=== PATIENT | female | born 1960 | race Caucasian/White ===

== ENCOUNTER → 2016-04-17 | Outpatient (CLI) | payer BC ==
[~2016-04-17] MED LIST: CYAN10002 INJ
== END | disposition home or self-care (01) ==
LOC: C.PAPS 11:55
PROVIDERS: ATTEND Obstetrics & Gynecology
DX: Z01.419 Encounter for gynecological examination (general) (routine) without abnormal findings (principal)

== ENCOUNTER → 2016-10-25 | Outpatient (CLI) | payer BC, OTHER | END | disposition home or self-care (01) | LOC: C.RDSM 13:53 | PROVIDERS: ATTEND Orthopaedic Surgery Sports Medicine | DX: R52 Pain, unspecified (principal) ==

== ENCOUNTER → 2016-10-30 | Outpatient (CLI) | payer BC ==
--- NOTE | 2016-10-30 08:03 | DIAGNOSTIC IMAGING REPORT ---
LEFT KNEE MRI HISTORY: Left knee pain. COMPARISON STUDY: Left knee 10/25/2016. TECHNIQUE: Multiplanar multisequence MRI of the left knee was performed according to standard department protocol without the use of contrast. FINDINGS: Menisci: Small oblique tear seen within the junction of the body and posterior horn of the medial meniscus. There is also a complex tear seen within the body and posterior horn of the lateral meniscus. Ligaments: The ACL, PCL, MCL, and LCL fibers are intact. Tiny cystlike structure deep to the MCL with mild surrounding edema at the MCL. This favors a mild MCL bursitis. Extensor mechanism: The quadriceps tendon and patellar ligament are intact. Articular cartilage and bone: No fracture or dislocation within the knee. Small focal areas of subchondral edema within the medial femoral condyle. Greater than 50% cartilage thinning within the central weightbearing portion of the medial femoral condyle. Mild cartilage thinning within the lateral femoral condyle and patella. Joint effusion: None. Soft tissues: Small popliteal cyst. IMPRESSION: 1. Medial and lateral meniscal tears as described above. 2. Tiny cystlike structure deep to the intact MCL. This is consistent with a mild MCL bursitis. 3. Mild to moderate tricompartmental osteoarthritis most notable within the medial compartment. 4. Small popliteal cyst. Electronically signed by: Vitor Wooten M.D. 10/30/2016 8:01 AM Dictated Date/Time: 10/30/2016 7:49 AM
== END | disposition home or self-care (01) ==
PROVIDERS: ATTEND Orthopaedic Surgery Sports Medicine
DX: S83.209A Unspecified tear of unspecified meniscus, current injury, unspecified knee, initial encounter (principal); X58.XXXA Exposure to other specified factors, initial encounter

== ENCOUNTER → 2017-02-19 | Outpatient (CLI) | payer BC ==
--- NOTE | 2017-02-19 14:45 | MAMMOGRAPHY REPORT ---
BILATERAL DIGITAL SCREENING MAMMOGRAM TOMOSYNTHESIS WITH CAD: 02/19/2017 CLINICAL HISTORY: Routine screening. Patient has no complaints. TECHNIQUE: Breast tomosynthesis in addition to standard 2D mammography was performed. Current study was also evaluated with a Computer Aided Detection (CAD) system. COMPARISON: Comparison is made to exams dated: 02/14/2016 mammogram, 02/10/2015 mammogram, 1 mammogram, 03/21/2010 ultrasound, 03/21/2010 mammogram, and 03/04/2010 mammogram - [facility]. BREAST COMPOSITION: The tissue of both breasts is extremely dense, which lowers the sensitivity of m ammography. FINDINGS: There are grouped calcifications within the left superior posterior breast on the MLO view only, thought to project laterally based on the tomosynthesis localizer bar, for which spot magnifica tion views and left XCCL view are recommended for further evaluation. The remainder of both breasts are stable compared to prior exams, without suspicious masses, calcific ations, or areas of architectural distortion noted. Other scattered bilateral benign-appearing calci fications are not significantly changed. Circumscribed benign-appearing mass with associated layerin g calcifications in the left 12:00 breast is stable to decreased compared to prior exams and is benig n and compatible with a cyst. IMPRESSION: ACR BI-RADS CATEGORY 0: INCOMPLETE EVALUATION: NEED ADDITIONAL IMAGING EVALUATION Grouped calcifications in the left superior breast, for which additional imaging evaluation is recomm ended. The patient will be called to schedule an appointment. Approximately 10% of breast cancers are not detected with mammography. A negative mammographic report should not delay biopsy if a clinically suggestive mass is present. Sanna Ghosh M.D. ah/:02/19/2017 07:59:06 Supervisor [employer]: Terri KERN,R, M, [facility] letter sent: Addl Imaging 0 BI-RADS Code: ACR BI-RADS Category 0: Incomplete Evaluation: Need Additional Imaging Evaluation
== END | disposition home or self-care (01) ==
LOC: C.MAMM 07:10
PROVIDERS: ATTEND Obstetrics & Gynecology
DX: Z12.31 Encounter for screening mammogram for malignant neoplasm of breast (principal); R92.0 Mammographic microcalcification found on diagnostic imaging of breast

== ENCOUNTER → 2017-05-03 | Outpatient (CLI) | payer OTHER | END | disposition home or self-care (01) | LOC: C.PAPS 14:16 | PROVIDERS: ATTEND Physician Assistant | DX: Z01.419 Encounter for gynecological examination (general) (routine) without abnormal findings (principal); Z78.0 Asymptomatic menopausal state ==

== ENCOUNTER → 2017-07-25 | Outpatient (CLI) | payer OTHER ==
[~2017-07-25] MED LIST changes: -CYAN10002 INJ; +No Home Meds
[2017-07-25 14:30] VITALS: BP 116/69; PULSE 76; TEMP 36.7; O2SAT 98
--- NOTE | 2017-07-25 15:48 | Radiation Oncology Follow-Up ---
Radiation Oncology Follow-Up Date of Visit Jul 25, 2017. 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 The lesion was positive for extensive intraductal component with the estimated size of DCIS at least 3.6 cm. The final AJCC pathologic staging was pT1mi pN0(sn-), ER negative and KS negative Status post completion of radiation therapy June 26, 2017. She received 5130 centigrade utilizing hypo-fractionation. Last Edited By: Jayla Funes on Jul 05, 2017 11:45 History of Present Illness Ms. Jose is without a family history of breast cancer. She was followed with screening mammograms. 02/14/2016. Bilateral digital screening mammogram revealed no mammographic evidence of malignancy with one year repeat scan recommended. 02/19/2017. Bilateral digital screening mammogram revealed grouped calcifications within the left superior posterior breast on the MLO view only. The remainder of both breasts were stable compared to the prior exam. A circumscribed benign-appearing mass with associated layering calcifications was noted in the left 12:00 breast and was stable to decreased compared to prior exam. This was given a BI-RADS Category 0 with an additional imaging recommended. 02/28/2017. Stereotactic biopsy of the left breast microcalcifications. This revealed high-grade DCIS with comedonecrosis and associated microcalcifications. The greatest dimension was 7 mm. Estrogen receptors were negative, progesterone receptors were negative. Case: [id number]. 03/07/2017. Pathology review at [facility]. Ductal carcinoma in situ, high nuclear grade. The tumor was ER and KS negative. Accession #: [id number]. 03/13/2017. Patient was seen by Dr. Yvette Quiñonez who recommended bilateral breast MRIs. This revealed segmental enhancement of the upper outer quadrant of the left breast corresponding to the patient's known high-grade DCIS. The enhancement on MRI involves the area of calcifications but was larger than the extent of calcifications as identified on mammogram. This extended into the axillary tail. The right breast was unremarkable. 04/09/2017. Left breast partial mastectomy. This revealed minute foci of microinvasive carcinoma (possibly to foci) arising in a background of extensive high-grade DCIS. The estimated size of the DCIS is at least 3.6 cm identified in 9 blocks. The architecture was comedo, cribriform and micropapillary with nuclear grade 3 and expanse of comedonecrosis. The microinvasion was less than 1 mm. The margins were uninvolved by invasive carcinoma. The margins were uninvolved by DCIS. The DCIS however was less than 1 mm from the anterior margin. Accession #: [id number]. 04/23/2017. Reexcision of the left anterior medial margin and sentinel lymph node biopsy. The reexcision of the margins #1 and #2 were negative for residual DCIS. Reexcision of the left anterior medial margin #3 identified residual DCIS, high-grade. A single focus measuring 0.5 mm was identified and was 3 mm from the reexcision margin. Skin excision was benign. The single sentinel node was negative for metastatic carcinoma. Accession #: [id number]. The final AJCC pathologic stage was pT1mi pN0(sn-), ER negative and KS negative. 05/16/2017. Patient is scheduled to be seen by Dr. Chaz Cochran, medical oncologist for discussion of the role of adjuvant systemic therapy. No systemic chemotherapy was recommended. She completed radiation therapy June 26, 2017. She received 5130 centigrade utilizing hypo-fractionation. Interim History She has been doing well over this past month. She denies any difficulty with skin changes following the completion of treatment. She is noted no masses or tenderness no change of the axilla. She has had no swelling of her arm. She has been seen in medical oncology and has sought a second and third opinion. She did have conflicting recommendations in regards to aromatase inhibitor. Her third opinion with Dr. Ford in [place] who felt that she should take an aromatase inhibitor. A prescription has been called in and she plans to start medication next week. She will be continuing follow-up mammography through the breast surgeons office. Allergies Coded Allergies: No Known Allergies (Unverified , 10/22/12) Home Medications Miscellaneous Medications [No Home Meds ] Review of Systems Gastrointestinal: Symptoms: WNL Oral: Symptoms: No Problems Respiratory: Symptoms: WNL Urinary: Symptoms: WNL Skin: Symptoms: No Problems Breast: Right Upper Arm Measurement: 30.5 Right Mid Arm Measurement: 23.5 Right Wrist Measurement: 15.4 Left Upper Arm Measurement: 31.7 Left Mid Arm Measurement: 23.7 Left Wrist Measurement: 15.3 Arm Dominence: Right Physical Exam Vital Signs Date Time Temp Pulse Resp B/P (MAP) Pulse Ox O2 Delivery O2 Flow Rate FiO2 07/25/17 14:30 36.7 76 16 116/69 98 Fatigue: None General Appearance: no apparent distress Eyes: normal inspection, EOMI ENT: normal ENT inspection, hearing grossly normal Neck: no adenopathy, thyroid normal Respiratory/Chest: lungs clear, no respiratory distress, no accessory muscle use Breast: Breast examination reveals well-healed incisions of the left breast. There is resolving hyperpigmentation. There are no masses or tenderness and no axillary adenopathy. She has no skin retractions or nipple changes. Using the Sundance score cosmesis she has excellent outcome. The right breast showed no masses or tenderness and no axillary adenopathy. Cardiovascular: regular rate, rhythm, no gallop, no murmur Extremities: no pedal edema Neurologic/Psychiatric: no motor/sensory deficits, alert, normal mood/affect Skin: warm/dry Pain Management Patient Reports Pain: No Pain Management Plan She denies pain therefore requires no pain management. Laboratory Laboratory Results: not applicable Pathology Pathology Results: were reviewed, and pertinent findings noted in HPI Imaging Imaging Studies: not applicable Assessment & Plan Plan: She was seen and examined by Dr. Luther. She will continue regular follow- up with her primary care provider, medical oncologist, and breast surgeon. She will have recheck MRIs and mammograms in [place]. An aromatase inhibitor has been prescribed. She plans on starting this medication next week. Today we completed a cancer survivorship care plan. A copy of the document was given to the patient. She was given a survivorship booklet. We asked her to return to our office in 6 months. Total Time In Follow-Up I spent 20 minutes speaking to the patient in performing examination. I spent 20 minutes reviewing information, preparing the survivorship document, and completing this note. AK Copy To Danny Queen M.D.; Emma Ford M.D.; Yvette Quiñonez M.D.
== END | disposition home or self-care (01) ==
LOC: C.ONC 14:23
PROVIDERS: ATTEND Physician Assistant Medical
DX: Z08 Encounter for follow-up examination after completed treatment for malignant neoplasm (principal); Z92.3 Personal history of irradiation; Z85.3 Personal history of malignant neoplasm of breast

== ENCOUNTER 2023-11-20 07:53 | Observation (INO) ==
--- NOTE | 2023-10-29 13:15 | PAT Medication Instructions ---
Medication Instructions Date of Service October 29, 2023 Home Medications cholecalciferol (vitamin D3) 1 tab PO QAM vitamin B complex [B Complex-Vitamin B12] 1 tab PO QAM Celebrex 1 cap PO UD calcium 1 tab PO QAM tamoxifen 20 mg tablet 20 mg PO HS ASK your surgeon for instructions Celebrex 1 cap PO UD ASK your prescriber and surgeon tamoxifen 20 mg tablet 20 mg PO HS DO NOT take the morning of surgery cholecalciferol (vitamin D3) 1 tab PO QAM vitamin B complex [B Complex-Vitamin B12] 1 tab PO QAM calcium 1 tab PO QAM Other Notes NOTHING TO EAT OR DRINK AFTER MIDNIGHT. If you have any questions please call us at [phone] or [phone] or [phone] or [phone]
--- NOTE | 2023-11-01 10:18 | Anesthesiology Consultation ---
Date of Service November 01, 2023 Assessment & Plan (1) Encounter for pre-operative examination: - patient fentanyl concerns: patient states that spinal block with fentanyl did not feel effective for neuraxial anesthesia during delivery in . She expressed comfort with discussion/plan to have final discussion with anesthesiologist cheko GRAHAM. - Outpatient joint assessment: Patient is currently scheduled for inpatient pathway. If re-evaluated and patient/surgeon requests outpatient pathway, patient is acceptable candidate for outpatient joint program from anesthesia standpoint pending surgeon's office assessment of pt motivation/support/completion of same day joint program preop requirements. - She had several questions regarding anesthesia/surgery which I discussed within scope for PAT and encouraged her to contact Dr. Buchanan's office with surgical/post-op questions. She requested at start of visit expediting process for PAT appointment as possible due to schedule today which was accommodated. She indicated at end of visit that questions/concerns were adequately addressed. I advised she contact PAT if any further questions or concerns arise. Total time in direct patient care: 35 minutes. She requested an early surgery time and was advised to notify surgeon's office. I notified OR. Chart Review Chart Review: Acceptable Risk for Surgery and Patient seen in Pre Admission Testing Teaching & Discussion Pre-Anesthesia Teaching/Discussion Notes: Instructed NPO after midnight before surgery, except medications with 15 cc of water. Medication instructions provided according to the PAT guidelines. History Surgery Operation Date: 11/20/23 10:00 Proposed Procedures p Right Total Knee Arthroplasty - Nolan Carmencita Buchanan MD Patient refused weight-reported weight as 130 lbs. Height/Weight Height: 5 ft 5.25 in Weight: 59 kg Allergies Allergy/AdvReac Type Severity Reaction Status Date / Time No Known Allergies Allergy Mild Verified 10/29/23 10:57 Medications Home Medications Medication Instructions Recorded Confirmed Last Taken cholecalciferol (vitamin D3) 1 tab PO QAM 12/20/22 10/29/23 Unknown vitamin B complex [B 1,000 mg PO QAM 12/20/22 11/01/23 Unknown Complex-Vitamin B12] Celebrex 1 cap PO UD Pain 10/29/23 10/29/23 Unknown calcium 600 mg PO QAM 10/29/23 11/01/23 Unknown tamoxifen 20 mg tablet 20 mg PO HS 10/29/23 10/29/23 Unknown Past Medical History Medical History Breast cancer, left breast (~2017) s/p lumpectomy 04/2017-denies limb restriction History of colon polyps Von Willebrand disease Patient denies h/o stroke, seizures, heart attack, heart failure, DM, HTN, blood clots/DVTs or blood transfusions. Exercise / Class Metabolic Activity II 4-5 Yardwork/Stairs/Walk up hill (denies chest discomfort or shortness of breath with one flight of stairs) Past Family History Family History Son Family hx colonic polyps Father Family hx colonic polyps Other Diabetes Heart disease Hypertension Thyroid disorder Denies family history of Ovarian cancer Breast cancer Colorectal cancer Uterine cancer Past Surgical History Surgical History History of breast biopsy left--malignant History of colonoscopy History of lumpectomy of left breast [place] [facility] [place] of tooth extraction wisdom teeth History of umbilical hernia repair Past Anesthesia History No Hx of Anesthesia Complications and No Family Hx of Anesthesia Complications History of PONV No Hx of Motion Sickness and History of PONV (denies needing scop patch) Social History Smoking Status: Never smoker Do You Dip or Chew Tobacco: No Hx Alcohol Use: Yes Alcohol type: wine alcohol intake frequency: holidays/special occasions only Hx Substance Use: No substance use type: does not use Review of Systems Patient denies chest pain, shortness of breath, dyspnea on exertion, snoring, witnessed apneas, reflux, fever, chills, cough, wheezing, or palpitations. Physical Exam Vital Signs Vitals BP 123/81 P 63 TEMP 98.3 SP02 99% on RA RESP 18 Physical Patient resting comfortably in chair in no acute distress, alert and oriented, responding appropriately throughout visit Full cervical extension range of motion without pain TMD 3.5 finger breadths Mallampati Score 2 Dentition: intact, denies chipped or loose teeth, caps/crowns, implants or bridges Lungs: normal respiratory effort. Good air movement, clear throughout to auscultation, no adventitious breath sounds Cardiac: regular rate and rhythm, no murmurs noted Carotid arteries: negative bruit bilat Lab Results Anesthesia Preop Results Results Anesthesia Widget: WBC 4.58 K/ul (4.8-10.8) L 11/01/23 Hgb 13.0 g/dl (12.0-16.0) 11/01/23 Hct 39.0 % (37.0-47.0) 11/01/23 Plt 288 K/uL (130-400) 11/01/23 Na 140 mmol/L (136-145) 11/01/23 K 3.9 mmol/L (3.5-5.1) 11/01/23 Cl 104 mmol/L (98-107) 11/01/23 CO2 30 mmol/L (21-32) 11/01/23 BUN 22 mg/dl (6-23) 11/01/23 Creat 0.84 mg/dl (0.6-1.2) 11/01/23 Glucose Level 99 mg/dl (70-99(Fasting)) 11/01/23 PT 11.0 Seconds (9.0-12.0) 11/01/23 PTT 28 Seconds (21-31) 11/01/23 INR 1.0 (0.9-1.1) 11/01/23 Urine Color Yellow 11/01/23 Urine Appearance Clear (Clear) 11/01/23 Urine pH 7.5 (4.5-7.5) 11/01/23 Urine Specific [place] 1.006 (1.000-1.030) 11/01/23 Urine Protein Negative (Negative) 11/01/23 Urine Glucose (UA) Negative (Negative) 11/01/23 Urine Ketones Negative (Negative) 11/01/23 Urine Blood Negative (Negative) 11/01/23 Urine Nitrite Negative (Negative) 11/01/23 Urine Bilirubin Negative (Negative) 11/01/23 Urine Urobilinogen Negative (Negative) 11/01/23 Urine Leukocyte Esterase Negative (Negative) 11/01/23 Blood Type O Positive 11/01/23 Antibody Screen NEGATIVE 11/01/23 Testing Electrocardiogram Date: 11/01/23 NSR, rate 64 bpm Chest X-Ray Date: 11/01/23 No acute chest disease.
--- NOTE | 2023-11-15 10:53 | History & Physical Report ---
Date of Service November 15, 2023 Assessment & Plan (1) Osteoarthritis of right knee: Plan: PRE-OP Diagnosis: Right knee osteoarthritis Planned Procedure: Right total knee arthroplasty Plan: Patient is scheduled to undergo this procedure at the [facility] with Dr. Buchanan on November 20, 2023. Risks and complications of the procedure such as: Infection, bleeding, pain, scarring, nerve blood vessel damage, weakness, wound problems, stiffness, incomplete relief of symptoms, hardware failure, hardware loosening, wear, fracture, tendon or ligament injury, blood clots, embolism, cardiac, stroke and were explained to the patient at her visit with Dr. Buchanan on October 24 and informed consent for the procedure was obtained. We have obtained preoperative medical clearance from the patient's primary care provider and channel program manager/oncologist. Patient has already met with the anesthesia at the hospital and while there she will obtained a CBC with differential, complete metabolic panel, PT/INR, blood type and screen, urinalysis, urine culture and sensitivity, EKG and a chest x-ray. During today's visit we reviewed the total knee packet. Patient states that she has a permanent handicap placard for her vehicle. She has missed the deadline for joint venture lectures offered by the [facility]. Patient has a walker that she will bring with her on the day of the procedure. I recommended that she purchase a shower chair and raised toilet seat. We discussed discharge planning from the hospital. Patient states [facility] postoperatively and then transition to in-home physical therapy because she lives by herself. I advised the patient that she will be provided with a prescription for narcotic pain medication for postoperative pain control. We will have her on Eliquis twice daily for the first 6 weeks postoperatively for blood clot prevention. She will need to hold her tamoxifen beginning today at her request of her oncologist. Patient verbalized understanding of all information provided during today's visit. She thanked us for the care that she received. If she has questions or concerns should arise prior to her surgery, she will contact the clinic. Patient will be scheduled for 2-week postoperative follow-up with myself on December 03. This chart was completed utilizing [employer] voice recognition software. Grammatical errors, random word insertions, pronoun errors, and in complete sentences are an occasional consequence of the system. Any questions or concerns about the content, text, or information contained within the body of this dictation should be addressed directly to the physician for clarification. History of Present Illness Chief Complaint: Chief Complaint: Right knee pain Primary Care Provider: Danny Queen MD History of Present Illness (including history relevant to procedure): This 63-year-old female presents to the clinic today for preoperative history and physical. Patient complains of longstanding history of bilateral knee pain with the right knee becoming much more severe over the past year. Patient denies any specific injury that may have exacerbated her pain. She has failed conservative treatment with viscosupplementation injections, steroid injections, oral nonsteroidal agents and physical therapy. Patient is electing to proceed with surgical intervention at this time. Review Of Systems: A 12 point review of systems is performed and is unremarkable except for those things stated in the HPI and past medical history. Past Medical History: Problems: VITAMIN D DEFICIENCY DCIS (ductal carcinoma in situ) B12 deficiency anemia Strain of calf muscle Low back pain Hyperhomocystinemia Annual physical exam Bilateral primary osteoarthritis of knee Bilateral knee pain Diverticulosis Leg pain, bilateral Postmenopausal estrogen deficiency Pes anserinus bursitis of left knee Sprain of MCL joint of knee DEGENERATION OF INTERVERTEBRAL DISC, SITE UNSPECIFIED VON WILLEBRAND'S DISEASE Tendonitis, tibialis Procedure History Procedure Procedure Date Comments DEXA - dual energy X-ray absorptiometry 10/19/2023 - SPINE: T score = -0.4 WNLHIP: T Score = -0.9 WNL Colonoscopy 12/11/2022 - - Diverticulosis in the left colon. - The examination was otherwise normal on direct and retroflexion views. - No specimens collected. - Repeat colonoscopy in 5 years for surveillance. Esophagogastroduodenoscopy 09/13/2022 - PATHOLOGY: Gastric antrumGreater Curvature: Reactive gastropathy with intestinal metaplasia. Gastric antrumLesser Curvature: Mild reactive gastropathy with focal intestinal metaplasia. Gastric Incisura: Mild reactive gasgtropathy. GastricBody, Lesser Curvature: No significant pathologic changes. Gastric Body, Greater Curvature: No significant pathologic changes. Duodenum: No significant pathologic changes: REPEAT 3 YEARS. - EGD stomach nl but bx done for gastric mapping. 2nd duod nl bx Ultrasound of pelvis and perineum 08/11/2022 - 1) Slightly irregular and borderline thickened endometrium measuring up to 7.7 with a few small subendometrial cysts. No definite endometrial masses identified. This endometrial irregularity/thickening is nonspecific but in the abscence of vaginal bleeding could represent long-standing tamoxifen therapy. 2) Normal right ovary. 3) The left ovary obscured by overlying bowel gas. X-ray of left knee 07/13/2022 - Osteopenia and degenerative change as above with no acute bony abnormality identified. Degenerative change has progressed as compared to 2016. X-ray of right knee 07/13/2022 - Degenerative changes without evidence of acute injury Pap smear and HPV cotesting 03/23/2020 - WNL Pulmonary function test 10/17/2018 - normal spirometry lung volumes and diffusing capacity of the lung for carbon monoxide. there was slight improvement after inhaled bronchodilator in both fev1 and [id number], possibly indicating some very mild reactive airways disease. clinical correlation is needed Chest CT 08/23/2018 - 1. No acute intrathoracic abnormality identified , specifically no evidence of pulmonary thromboembolic disease. 2. No adenopathy or focal airspace consolidation typical for pneumonia. 3. No evidence of radiation fibrosis or metastatic disease. 4. Postoperative changes of the left breast and left axilla. Foot 03/2018 Colonoscopy 11/16/2017 - Diverticulosis in the sigmoid colonNo specimens collected PAP test date 05/03/2017 Left breast 04/23/2017 - excision Breast lumpectomy 04/09/2017 - left Pathology report 03/07/2017 - Left breast, upper outer wuadrant stereotactic-guided core biopsy. 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 Size in greatest dimension on glass slide 7 mm. estrogen receptor-negataive. Progesterone reeptor negative - Impression:Stereotactic biopsy of indeterminate calcifications in the left upper out quadrant, with clip placement. Diagnostic mammogram 02/28/2017 Mammogram 02/19/2017 - Grouped calcifications in left superior breast, for which additional evaluation is recommended. - No malignancy. One year screening recommended. - No malignancy. One year screening recommended. MRI 10/30/2016 - Impression:Left knee.1. Medial and leteral meniscal tears as described above2. Tiny cyst-like structure deep to the intact MCL. This is consistent with a mild MCL bursitis.3. Mild to moderate tricompartmental osteoarthritis most notable within the medial compartment.4. Small popliteal cyst. Papanicolaou smear 04/17/2016 - Negative for intraepithelial lesion or malignancy. umbilical hernia repair 10/29/2012 Colonoscopy normal 09/13/2011 [place] Teeth extraction About 1978 Allergies and Sensitivities: anastrozole(felt very poorly on it) Current Home Meds: (Last Updated 11/13 15:11) celecoxib (CeleBREX 200 mg oral capsule) 200 mg PO Daily PRN: as needed for pain contents of capsule may be mixed with soft foods such as applesauce cholecalciferol (Vitamin D3 2000 intl units (50 mcg) oral capsule) 50 mcg PO Daily cyanocobalamin (Vitamin B12) 1,000 mcg PO Daily tamoxifen (tamoxifen 20 mg oral tablet) 20 mg PO Daily unknown medication (Calcium) 2,000 mg PO Daily Allergies Allergy/AdvReac Type Severity Reaction Status Date / Time No Known Allergies Allergy Mild Verified 10/29/23 10:57 Home Medications Medication Instructions Recorded Confirmed Type cholecalciferol (vitamin D3) 1 tab PO QAM 12/20/22 10/29/23 History vitamin B complex [B 1,000 mg PO QAM 12/20/22 11/01/23 History Complex-Vitamin B12] Celebrex 1 cap PO UD Pain 10/29/23 10/29/23 History calcium 600 mg PO QAM 10/29/23 11/01/23 History tamoxifen 20 mg tablet 20 mg PO HS 10/29/23 10/29/23 History Past Med/Surg History Problem List (Updated 11/15/23 @ 10:52 by Henri Hill PA-C) Osteoarthritis of right knee Thickened endometrium Encounter for pre-operative examination Medical History History of colon polyps Breast cancer, left breast (~2016) s/p lumpectomy 04/2017-denies limb restriction Von Willebrand disease Surgical History History of colonoscopy History of umbilical hernia repair History of lumpectomy of left breast x2--04/2017 @ [facility] [place] History of breast biopsy left--malignant History of tooth extraction wisdom teeth Family History Son Family hx colonic polyps Father Family hx colonic polyps Other Diabetes Heart disease Hypertension Thyroid disorder Denies family history of Ovarian cancer Breast cancer Colorectal cancer Uterine cancer Social History Smoking Status: Never smoker Second Hand Exposure: No; Do You Dip or Chew Tobacco: No; Hx Alcohol Use: Yes Alcohol type: wine Hx Substance Use: No Preferred Language: [place] Communication Ability: Effective Pulverizer Operator Required: No Beliefs That Will Affect Care: None Current Living Situation: Alone Current Living Situation Comment: family will be coming in to stay Feels Safe at Home: Yes Assistive Devices: None Review of Systems All systems reviewed & are unremarkable except as noted in Subjective Physical Exam Physical Exam: Physical Exam: (relevant to the procedure, including heart and lung evaluation) General: Alert and oriented x 3 with proper grooming and hygiene Eyes: Pupils are equal and reactive to light with accommodation. Extraocular movements are intact Throat: Posterior oropharynx is clear without excessive edema, erythema or exudate. Dentition is appropriate Cardiac: Regular rate and rhythm with no murmurs or gallops appreciated Lungs: Clear to auscultation throughout with no wheezing, rales or rhonchi Abdomen: Nonobese, nondistended, nontender with NABS Extremities: Right knee; ROM 5 to 125 + Medial and lateral patellar facet tend erness + Medial joint line tenderness Ligamentous examination exhibits: Stable Jenny 0 mm anterior translation and firm endpoint Posterior drawer stable Varus stress at 5 and 30 stable Valgus stress at 5 and 30 stable Neuro: Cranial nerves II through XII are intact no motor or sensory deficit Skin: Normal in appearance with no open skin areas or discharge Results & Data Diagnostic Findings Studies (relevant to the procedure): OA series (Bilateral hips to ankles, AP standing, 45 flexion PA view, sunrise, and lateral) which shows medial joint space narrowing, [id number]. There is squaring of the tibia, sclerosis, and marginal osteophytes. No acute fracture or dislocation. 7 Varus alignment on the right, 5 Varus alignment on the left. Incidental finding of degenerative lower lumbar spine with scoliosis.
[~2023-11-20 07:53] MED LIST changes: +BUPIVACAINE 0.5 % 5 MG/1 ML PF 10ML VIAL ONE; +General Order Problem(s) SCH; +KETOROLAC 30 MG/ML VIAL ONE; +MIDAZOLAM HCL 1 MG/ML 2ML VIAL ONE; -No Home Meds; +PROPOFOL IV EMULSION 10 MG/ML 20 ML VIAL IV ONE; +ROPIVACAINE 0.5% 5 MG/ML 30 ML VIAL ONE; +fentaNYL citrate PF 100 MCG/2 ML VIAL ONE
--- OUTSIDE RECORDS SUMMARY | 2023-11-20 08:23 | External Medical Summary | Continuity of Care Document ---
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 Recommendations Health Maintenance Pending(in the next year) OverDue Adult Influenza Vaccine due09/30/23and every 1year Due Adult COVID-19 Vaccination due11/08/23Unknown Frequency Adult Social Determinants of Health Screening due11/08/23Unknown Frequency Body Mass Index due11/08/23Unknown Frequency Lipid Screening due11/08/23Unknown Frequency Pneumococcal Vaccine Adults and Adolescents with Chronic Illness due11/08/23One-time only Shingles Vaccine due11/08/23One-time only Satisfied(in the past 1 year) Satisfied Adult Influenza Vaccine on03/02/23.Satisfied by RASHEED Gongora Courtney D Breast Cancer Screening on03/01/23.Satisfied by Mouna Garcia Electronic Signature on File Electronically Reviewed/Signed by: Casimiro Pierre MD Author Signature Dt/Tm:11/08/2023 12:37 PM Department of Family Medicine [facility] Patient Care team information Care Team Personnel Name: MD Bret, Danny Lucas Position: Physician - Family Med Member Role: Lifetime Relationship Address: [address] [place] [address] [place] Name: BERTA Tellez Tara Position: Nurse Pract - Family Med Member Role: Lifetime Relationship Address: [address] [place] [address] [place] Name: MD Gabby, Casimiro Santos Position: Physician - Family Med Member Role: Primary Care Provider Address: [address] [place] [address] [place] Name: MD Khang, Yvette De La Rosa Position: Physician - Surgery Oncology Member Role: Lifetime Relationship Address: [address] [facility] [address] [place] [address] Care Team Related Persons Name: LATISHA GARCIA Name: BEAR TATE"
--- OUTSIDE RECORDS SUMMARY | 2023-11-20 08:23 | External Medical Summary | Continuity of Care Document ---
Author Name Unknown Organization [facility] Address [address] [place] [address] KYLAH DANIELSON [phone] Care Team Providers Care Central Office Trouble Shooter Name Role Phone Casimiro Pierre Primary Care Physician [phone] [facility] [id number] Date(s): 11/12/23 - 11/12/23 [facility] [id number], [place] [address]- [phone] Encounter Diagnosis VON WILLEBRAND'S DISEASE(Discharge Diagnosis) - 11/12/23 Discharge Disposition: Home or Self Care Attending Physician: MD Atwood M Elaine Referring Physician: MD Pierre Michael P Allergies, Adverse Reactions, Alerts Substance Criticality Severity Reaction Reaction Severity Status anastrozole felt very poorly on it Active Immunizations Given and Recorded Vaccine Date Status Refusal Reason influenza virus vaccine, inactivated 03/02/23 Give n influenza virus vaccine, inactivated 02/14/18 Give n SARS-CoV-2 (COVID-19) mRNA-1273 vaccine 1 06/02/20 Recorded SARS-CoV-2 (COVID-19) mRNA-1273 vaccine 2 05/05/20 Recorded tetanus toxoids-diphtheria, Td (Adult) 02/14/18 Gi virgil tetanus toxoids-diphtheria, Td (Adult) 11/24/94 Re corded tetanus/diphtheria/pertuss, acel (Tdap) 12/12/06 R ecorded 1Result Comment: Kayden 2Result Comment: [place] Medications Calcium Start: 11/12/23 9:42:00 AM EDT, Calcium, 2,000 = mg, PO, Daily Start Date: 11/12/23 Status: Ordered CeleBREX 200 mg oral capsule Start: 08/14/23 1:20:00 PM EDT, 1 cap, PO, Daily, Disp# 45 cap, Refills: 2, contents of capsule may be mixed with soft foods such as applesauce, PRN: as needed for pain, Pharmacy: [facility] Start Date: 08/14/23 Stop Date: 11/12/23 Status: Ordered tamoxifen 20 mg oral tablet Start: 10/17/23 10:19:00 AM EDT, 1 tab, PO, Daily, Disp# 90 tab, Refills: 3, Pharmacy: [facility] Start Date: 10/17/23 Status: Ordered Vitamin B12 Start: 10/11/22 8:52:00 AM EDT, 1,000 mcg =, PO, Daily Start Date: 10/11/22 Status: Ordered Vitamin D3 2000 intl units (50 mcg) oral capsule Start: 07/17/22 12:20:00 PM EDT, 1 cap, PO, Daily, Disp# 100 cap, Refills: 10, other Start Date: 07/17/22 Status: Ordered Mental Status 11/12/23 Barriers to Learning one year None evide nt Mandatory Health Literacy Documentation Yes Communication Barrier Present No Health Literacy Communication Barriers N ever Primary Language Wallisian Problem List Condition Confirmation Course Effective Dates [...] Diagnosis Diagnosis Type Effective Dates Health Status Cl inical Service Informant VON WILLEBRAND'S DISEASE Discharge Diagnosis 11/12/23 Procedures Procedure Date Related Diagnosis Body Site [...] C ompleted Colonoscopy normal 09/13/11 Comple jose [place] Teeth extraction 1978 C ompleted 1SPINE: T [...] after inhaled bronchodilator in both fev1 and [id number], possibly indicating some very mild reactive airways [...] cyst. 21Negative for intraepithelial lesion or malignancy. Results Laboratory List Name Date Factor VIII Assay (FACTOR VIII ASSAY) 03/25 von Willebrand Factor Activity (VON WILL .FACTOR ACT) 11/12/23 Blue #2 on Hold in Laboratory (EXTRA JACOB E 2) 11/12/23 Blue #3 on Hold in Laboratory (EXTRA JACOB E 3) 11/12/23 Complete Blood Count w Differential (CBC ,DIFFH) 11/12/23 Extra Blue (EXTRA BLUE) 11/12/23 Most recent to oldest [Reference Range]: 1 Blue Specimen available f rom 0 to 3 days based on specimen stability. Please use addon order if you wish to order testing. *Unknown* (11/12/23 9:08 AM) Blue, 2nd Cont. CHANGED TO FREEZ *Unknown* (11/12/23 9:08 AM) Blue, 3rd Cont. CHANGED TO FREEZ *Unknown* (11/12/23 9:08 AM) MPV [9.0-12.2 fL] 10.1 fL (11/12/23 9:08 AM) Immature Gran% 0.0 % (11/12/23 9:08 AM) Neut% 44.5 % (11/12/23 9:08 AM) Lymph% 42.8 % (11/12/23 9:08 AM) Tripp% 9.9 % (11/12/23 9:08 AM) Baso% 1.1 % (11/12/23 9:08 AM) Eos% 1.7 % (11/12/23 9:08 AM) Immat Gran, Abs [0-0.4 K/uL] 0.00 K/uL (11/12/23 9:08 AM) Neut, Abs [2.0-7.7 K/uL] 1.61 K/uL *LOW* (11/12/23 9:08 AM) Lymph, Abs [1.0-3.4 K/uL] 1.55 K/uL (11/12/23 9:08 AM) Tripp, Abs [0-1.0 K/uL] 0.36 K/uL (11/12/23 9:08 AM) Baso, Abs [0-0.1 K/uL] 0.04 K/uL (11/12/23 9:08 AM) Eos, Abs [0-0.5 K/uL] 0.06 K/uL (11/12/23 9:08 AM) Type of Diff: AUTO *Unknown* (11/12/23 9:08 AM) RDW [11.5-14.2 %] 12.9 % (11/12/23 9:08 AM) Hct [35-44 %] 39.9 % (11/12/23 9:08 AM) Hgb [11.7-15.0 g/dL] 12.8 g/dL (11/12/23 9:08 AM) MCH [28-33 pg] 31.3 pg (11/12/23 9:08 AM) MCHC [32-36 g/dL] 32.1 g/dL (11/12/23 9:08 AM) MCV [81-96 fL] 97.6 fL *HI* (11/12/23 9:08 AM) Plts [150-350 K/uL] 247 K/uL (11/12/23 9:08 AM) RBC [3.90-5.00 M/uL] 4.09 M/uL (11/12/23 9:08 AM) WBC [4.0-10.4 K/uL] 3.62 K/uL *LOW* (11/12/23 9:08 AM) von Willebrand Factor Activity [50-200 % ] CREDIT RCR % 1 (11/12/23 9:10 AM) F VIII [50-175 %] 132 % (11/12/23 9:10 AM) 1Result Comment: REORDERED BY LAB SEE REFERENCE REPORT Vital Signs Most recent to oldest [Reference Range]: 1 Temperature [36.5-37.9 DegC] 36.7 DegC (11/12/23 9:45 AM) Heart Rate 57 bpm (11/12/23 9:45 AM) Respiratory Rate 16 br/min (11/12/23 9:45 AM) Blood Pressure 129/82mmHg (11/12/23 9:45 AM) Cuff Pulse Pressure 47 mmHg (11/12/23 9:45 AM) BP Location # 1 Left Arm (11/12/23 9:45 AM) Social History Social History Type Response Smoking Status Never smoked cigaret charlee Sex Female Sex Representation Female (finding) Patient Care team information Care Team Personnel Name: MD Bret, Danny Lucas Position: Physician - Family Med Member Role: Lifetime Relationship Address: [address] [facility] [address] [place] [address] [place] Name: BERTA Tellez Tara Position: Nurse Pract - Family Med Member Role: Lifetime Relationship Address: [place] [address] [place] Name: MD Gabby, Casimiro Santos Position: Physician - Family Med Member Role: Primary Care Provider Address: [address] [facility] [address] [place] [address] [place] Name: MD Khang, Yvette De La Rosa Position: Physician - Surgery Oncology Member Role: Lifetime Relationship Address: [facility] [address] [place] [address] [place] Care Team Related Persons Name: LATISHA GARCIA Name: BEAR TATE
--- OUTSIDE RECORDS SUMMARY | 2023-11-20 08:23 | External Medical Summary | Continuity of Care Document ---
Author Name Unknown Organization [address] [place] [id number] Address [address] [place] [id number] Care Team Providers Care Chemical Production Engineer Name Role Phone Casimiro Pierre Primary Care Physician [phone] [facility] [id number] Date(s): 11/14/23 - 11/14/23 [facility] [employer] [facility] 112Z [facility] [address] [place] [id number] Encounter Diagnosis Preoperative examination(Discharge Diagnosis) - 11/14/23 Bilateral primary osteoarthritis of knee(Discharge Diagnosis) - 11/14/23 Discharge Disposition: Home or Self Care Attending Physician: PEDRO Hill Dennis Referring Physician: MD Chanel, Nolan A Allergies, Adverse Reactions, Alerts Substance Criticality Severity [...] R ecorded 1Result Comment: Kayden 2Result Comment: [place] Medications Calcium Start: 11/12/23 9:42:00 AM EDT, Calcium, 2,000 = mg, PO, Daily Start Date: 11/12/23 Status: Ordered CeleBREX 200 mg oral capsule Start: 08/14/23 1:20:00 PM EDT, 1 cap, PO, Daily, Disp# 45 cap, Refills: 2, contents of capsule may be mixed with soft foods such as applesauce, PRN: as needed for pain, Pharmacy: [facility] Start Date: 08/14/23 Stop Date: 11/12/23 Status: Ordered tamoxifen 20 mg oral tablet Start: 10/17/23 10:19:00 AM EDT, 1 tab, PO, Daily, Disp# 90 tab, Refills: 3, Pharmacy: [facility] Start Date: 10/17/23 Status: Ordered Vitamin B12 Start: 10/11/22 8:52:00 AM EDT, 1,000 mcg =, PO, Daily Start Date: 10/11/22 Status: Ordered Vitamin D3 2000 intl units (50 mcg) oral capsule Start: 07/17/22 12:20:00 PM EDT, 1 cap, PO, Daily, Disp# 100 cap, Refills: 10, other Start Date: 07/17/22 Status: Ordered Mental Status 11/14/23 Barriers to Learning one year None evide nt Mandatory Health Literacy Documentation Yes Health Literacy Communication Barriers N ever Primary Language Citizen Of [place] Problem List Condition Confirmation Course Effective Dates [...] Effective Dates Health Status Clinical Service Informant Preoperative examination Discharge Diagnosis 11/14/23 Bilateral primary osteoarthritis of knee Discharge Diagnosis 11/14/23 Procedures Procedure Date Related Diagnosis Body Site [...] C ompleted Colonoscopy normal 09/13/11 Comple jose [place] Teeth extraction 1978 C ompleted 1SPINE: T [...] after inhaled bronchodilator in both fev1 and stm90-89, possibly indicating some very mild reactive airways [...] oldest [Reference Range]: 1 Temperature [36.5-37.9 DegC] 36.1 DegC *LOW* (11/14/23 3:12 PM) Respiratory Rate 20 br/min (11/14/23 3:12 PM) Blood Pressure 106/62mmHg (11/14/23 3:12 PM) Cuff Pulse Pressure 44 mmHg (11/14/23 3:12 PM) Social History Social History Type Response Smoking Status Never smoked cigaret charlee Sex Female Sex Representation Female (finding) Pre-OP H & P * PEDRO Hill Dennis: PERFORM Event Display: Pre-OP H & P Authored Date: [id number] PRE-OPERATIVE HISTORY AND PHYSICAL Name: DOMINGA GARCIA Patient Number: [id number] : 1960 Date of Service: 11/15/2023 PRE-OP Diagnosis: Right knee osteoarthritis Planned Procedure: Right total knee arthroplasty Chief Complaint: Right knee pain History of Present Illness (including history relevant to procedure): This 63-year-old female presents to the clinic today for preoperative history and physical. Patient complains of longstanding history of bilateral knee pain with the right knee becoming much more severe over the past year. Patient denies any specific injury that may have exacerbated her pain. She has failed conservative treatment with viscosupplementation injections, steroid injections, oral nonsteroidal agents and physical therapy. Patient is electing to proceed with surgical intervention at this time. Review Of Systems: A 12 point review of systems is performed and is unremarkable except for those things stated in the HPI and past medical history. Past Medical History: Problems: VITAMIN D DEFICIENCY DCIS (ductal carcinoma in situ) B12 deficiency anemia Strain of calf muscle Low back pain Hyperhomocystinemia Annual physical exam Bilateral primary osteoarthritis of knee Bilateral knee pain Diverticulosis Leg pain, bilateral Postmenopausal estrogen deficiency Pes anserinus bursitis of left knee Sprain of MCL joint of knee DEGENERATION OF INTERVERTEBRAL DISC, SITE UNSPECIFIED VON WILLEBRAND'S DISEASE Tendonitis, tibialis Procedure History Procedure Procedure Date Comments DEXA - dual energy X-ray absorptiometry 10/19/2023 - SPINE: T score = -0.4 WNLHIP: T Score = -0.9 WNL Colonoscopy 12/11/2022 - - Diverticulosis in the left colon. - The examination was otherwise normal on direct and retroflexion views. - No specimens collected. - Repeat colonoscopy in 5 years for surveillance. Esophagogastroduodenoscopy 09/13/2022 - PATHOLOGY: Gastric antrumGreater Curvature: Reactive gastropathy with intestinal metaplasia. Gastric antrumLesser Curvature: Mild reactive gastropathy with focal intestinal metaplasia. Gastric Incisura: Mild reactive gasgtropathy. GastricBody, Lesser Curvature: No significant pathologic changes.Gastric Body, Greater Curvature: No significant pathologic changes. Duodenum: No significant pathologic changes: REPEAT 3 YEARS. - EGD stomach nl but bx done for gastric mapping. 2nd duod nl bx Ultrasound of pelvis and perineum 08/11/2022 - 1) Slightly irregular and borderline thickened endometrium measuring up to 7.7 with a few small subendometrial cysts. No definite endometrial masses identified. This endometrial irregularity/thickening is nonspecific but in the abscence of vaginal bleeding could represent long-standing tamoxifen therapy. 2) Normal right ovary. 3) The left ovary obscured by overlying bowel gas. X-ray of left knee 07/13/2022 - Osteopenia and degenerative change as above with no acute bony abnormality identified. Degenerative change has progressed as compared to 2017. X-ray of right knee 07/13/2022 - Degenerative changes without evidence of acute injury Pap smear and HPV cotesting 03/23/2020 - WNL Pulmonary function test 10/17/2018 - normal spirometry lung volumes and diffusing capacity of the lung for carbon monoxide. there was slight improvement after inhaled bronchodilator in both fev1 and shx15-80, possibly indicating some very mild reactive airways disease. clinical correlation is needed Chest CT 08/23/2018 - 1. No acute intrathoracic abnormality identified , specifically no evidence of pulmonary thromboembolic disease. 2. No adenopathy or focal airspace consolidation typical for pneumonia. 3. No evidence of radiation fibrosis or metastatic disease. 4. Postoperative changes of the left breast and leftaxilla. Foot 03/2018 Colonoscopy 11/16/2017 - Diverticulosis in the sigmoid colonNo specimens collected PAP test date 05/03/2017 Left breast 04/23/2017 - excision Breast lumpectomy 04/09/2017 - left Pathology report 03/07/2017 - Left breast, upper outer wuadrant stereotactic-guided core biopsy. 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 Size in greatest dimension on glass slide 7 mm. estrogen receptor-negataive. Progesterone reeptor negative - Impression:Stereotactic biopsy of indeterminate calcifications in the left upper out quadrant, with clip placement. Diagnostic mammogram 02/28/2017 Mammogram 02/19/2017 - Grouped calcifications in left superior breast, for which additional evaluation is recommended. - No malignancy. One year screening recommended. - No malignancy. One year screening recommended. MRI 10/30/2016 - Impression:Left knee.1. Medial and leteral meniscal tears as described above2. Tiny cyst-like structure deep to the intact MCL. This is consistent with a mild MCL bursitis.3. Mild to moderate tricompartmental osteoarthritis most notable within the medial compartment.4. Small popliteal cyst. Papanicolaou smear 04/17/2016 - Negative for intraepithelial lesion or malignancy. umbilical hernia repair 10/29/2012 Colonoscopy normal 09/13/2011 [place] Teeth extraction About 1978 Allergies and Sensitivities: anastrozole(felt very poorly on it) Current Home Meds: (Last Updated 11/13 15:11) celecoxib (CeleBREX 200 mg oral capsule) 200 mg PO Daily PRN: as needed for pain contents of capsule may be mixed with soft foods such as applesauce cholecalciferol (Vitamin D3 2000 intl units (50 mcg) oral capsule) 50 mcg PO Daily cyanocobalamin (Vitamin B12) 1,000 mcg PO Daily tamoxifen (tamoxifen 20 mg oral tablet) 20 mg PO Daily unknown medication (Calcium) 2,000 mg PO Daily Vitals: Last Updated 11/14/23 15:12 Weights: No Weight Data Available Date Temp Pulse BP RR SpO2 FIO2 Date Wt(kg) Wt(lb) 11/13 15:12 36.1 106/62 20 98 24 Hr Tmax: 36.1 at 11/13 15:12 Initial Wt: No Data Available Physical Exam: (relevant to the procedure, including heart and lung evaluation) General: Alert and oriented x 3 with proper grooming and hygiene Eyes: Pupils are equal and reactive to light with accommodation. Extraocular movements are intact Throat: Posterior oropharynx is clear without excessive edema, erythema or exudate. Dentition is appropriate Cardiac: Regular rate and rhythm with no murmurs or gallops appreciated Lungs: Clear to auscultation throughout with no wheezing, rales or rhonchi Abdomen: Nonobese, nondistended, nontender with NABS Extremities: Right knee; ROM 5 to 125 + Medial and lateral patellar facet tenderness + Medial joint line tenderness Ligamentous examination exhibits: Stable Jenny 0 mm anterior translation and firm endpoint Posterior drawer stable Varus stress at 5 and 30 stable Valgus stress at 5 and 30 stable Neuro: Cranial nerves II through XII are intact no motor or sensory deficit Skin: Normal in appearance with no open skin areas or discharge Studies (relevant to the procedure): OA series (Bilateral hips to ankles, AP standing, 45 flexionPA view, sunrise, and lateral) which shows medial joint space narrowing, [id number]. There is squaring of the tibia, sclerosis, and marginal osteophytes. No acute fracture or dislocation. 7 Varusalignment on the right, 5 Varus alignment on the left. Incidental finding of degenerative lower lumbar spine with scoliosis. Plan: Patient is scheduled to undergo this procedure at the [facility] with Dr. Buchanan on November 20, 2023. Risks and complications of the procedure such as: Infection, bleeding, pain, scarring, nerve blood vessel damage, weakness, wound problems, stiffness, incomplete relief of symptoms, hardware failure, hardware loosening, wear, fracture, tendon or ligament injury, blood clots,embolism, cardiac, stroke and were explained to the patient at her visit with Dr. Buchanan on October 24 and informed consent for the procedure was obtained. We have obtained preoperative medical clearance from the patient's primary care provider and research hydrologist/oncologist. Patient has already metwith the anesthesia at the hospital and while there she will obtained a CBC with differential, complete metabolic panel, PT/INR, blood type and screen, urinalysis, urine culture and sensitivity, EKG and a chest x-ray. During today's visit we reviewed the total knee packet. Patient states that she has a permanent handicap placard for her vehicle. She has missed the deadline for joint venture lectures offered by the [facility]. Patient has a walker that she will bring with her on the day of the procedure. I recommended that she purchase a shower chair and raised toilet seat. We discussed discharge planning from the hospital. Patient [facility] and then transition to in-home physical therapy because she lives by herself. I advised the patient that she will be provided with a prescription for narcotic pain medication for postoperative pain control. We will have her on Eliquis twice daily for the first 6 weeks postoperatively for blood clot prevention. She will need to hold her tamoxifen beginning today at her request of her oncologist. Patient verbalized understanding of all information provided during today's visit. She thanked us for the care that she received. If she has questions or concerns should arise prior to her surgery, she will contact the clinic. Patient will be scheduled for 2-week postoperative follow-up with myself on December 03. This chart was completed utilizing [employer] voice recognition software. Grammatical errors,random word insertions, pronoun errors, and in complete sentences are an occasional consequence of the system. Any questions or concerns about the content, text, or information contained within the body of this dictation should be addressed directly to the physician for clarification. Electronic Signature on File CC: Casimiro Pierre MD [facility] [address] [id number] Electronically Reviewed/Signed by: Henri Hill PA-C Author Signature Dt/Tm:11/15/2023 10:45 AM Division of Sports Medicine Electronically Reviewed/Signed by: MD Maximilian Del Rioigner Signature Dt/Tm: 11/15/2023 01:55 PM [facility] [employer] Chief Department of Orthopaedics and Rehabilitation [facility] [address], [place] [address] [place] Patient Care team information Care Team Personnel Name: MD Bret, Danny Lucas Position: Physician - Family Med Member Role: Lifetime Relationship Address: [address] [place] [address] [place] Name: BERTA Tellez Tara Position: Nurse Pract - Family Med Member Role: Lifetime Relationship Address: [address] [place] [address] [place] Name: MD Gabby, Casimiro Santos Position: Physician - Family Med Member Role: Primary Care Provider Address: [address] [place] [address] [place] Name: MD Khang, Yvette De La Rosa Position: Physician - Surgery Oncology Member Role: Lifetime Relationship Address: [address] [place] [address] [place] Care Team Related Persons Name: LATISHA GARCIA Name: BEAR TATE
[2023-11-20] MEDS: LR 500ML BOLUS, THEN 15ML/HR IV SCH (08:40)
[2023-11-20] MEDS: ACETAMINOPHEN 500 MG TAB PO SCH ×2 (08:41→15:12)
[2023-11-20] MEDS: CeleBREX 200 MG CAP PO SCH (08:41)
[2023-11-20] MEDS: FAMOTIDINE 20 MG TAB PO SCH (08:41)
[2023-11-20] MEDS: dexAMETHasone**PF** 10 MG/ML VIAL IV SCH (08:41)
[2023-11-20] MEDS: traMADol HCL 50 MG TABLET PO SCH (08:43)
[2023-11-20] MEDS: Scopolamine 1 MG TDSY TD SCH (08:44)
[2023-11-20] MEDS: LR 60ML/HR IV SCH (08:44)
--- NOTE | 2023-11-20 09:10 | History & Physical Bridge Note ---
Date of Service November 20, 2023 History & Physical Bridge Note I have examined the patient, reviewed the History & Physical and in the interval since the performance of the History & Physical I have noted the following changes of clinical significance: no changes noted
[2023-11-20] MEDS ORDERED: Nursing to Pharmacy Communication SCH (09:30)
[2023-11-20] MEDS ORDERED: ePHEDrine sulfate 50 MG/ML AMP IV PRN (09:36)
[2023-11-20] MEDS ORDERED: fentaNYL citrate PF 100 MCG/2 ML VIAL IV PRN (09:36)
[2023-11-20] MEDS ORDERED: ATROPINE SULFATE 0.1 MG/ML 10ML SYR IV PRN (09:36)
[2023-11-20] MEDS ORDERED: ONDANSETRON INJ 2 MG/ML 2 ML VIAL IV PRN ×2 (09:36→12:30)
[2023-11-20] MEDS: TRANEXAMIC ACID 1,000 MG **IV Pre-op IV SCH (09:42)
[2023-11-20] MEDS: ceFAZolin 2000MG 2,000 MG/15 ML SYR IV SCH ×2 (10:04→18:54)
[2023-11-20] MEDS: ORTHO JOINT ANESTHETIC ONE (10:49)
[2023-11-20] MEDS: ROPIVACAINE 0.5% HCL/PF 246 MG, Ketorolac (*for OR use only*) 30 MG, EPINEPHrine 30MG/3... INFIL SCH (10:50)
[2023-11-20] MEDS: ROPIV 0.5% 246mg, Ketorolac 30mg, EPINEPHrine 0.5mg in NSS INFIL SCH (11:41)
[2023-11-20] MEDS: TRANEXAMIC ACID 1,000 MG **IV Intra-op IV SCH (11:48)
--- NOTE | 2023-11-20 12:18 | Post Operative Brief Note ---
Immediate Post Op Note Date of Surgery November 20, 2023 Pre & Post Diagnosis Operation Date: 11/20/23 10:00 Pre-Op Diagnosis: Osteoarthritis Knee Right Post-Op Diagnosis: Osteoarthritis Knee Right I identified the patient and participated in the time-out.: Yes Procedure Operation Date: 11/20/23 10:00 Actual Procedures p Right Total Knee Arthroplasty(Right) - Nolan Buchanan MD Surgeon Nolan Buchanan MD Belting Inspector MARLON Hill PA-C (No fellow avail) Estimated Blood Loss 75 Findings Consistent with Post-Op Diagnosis Fluids 1300 cc Specimens Right knee contents Anesthesia Type MAC Spinal Regional Complications none
--- NOTE | 2023-11-20 12:19 | Operative Report ---
Post Operative Report Pre & Post Diagnosis Operation Date: 11/20/23 10:00 Pre-Op Diagnosis: Osteoarthritis Knee Right Post-Op Diagnosis: Osteoarthritis Knee Right I identified the patient and participated in the time-out.: Yes Procedure Operation Date: 11/20/23 10:00 Actual Procedures p Right Total knee replacement, imageless computer assisted navigation (Right) - Nolan Buchanan MD Surgeon Nolan Buchanan MD Director Perioperative MARLON Hill PA-C (No fellow avail) Estimated Blood Loss 75 Findings See Below Examined Under Anesthesia: ROM -- There was 5 degrees to 125 degrees of flexion Ligamentous examination -- revealed stable Jenny, posterior drawer, varus and valgus stress at 5 and 30 degrees. [place] Grade IV changes of Medial and patellofemoral compartments, grade II-III lateral compartment. Fluids 1300 cc Specimens Right knee contents Anesthesia Type MAC Spinal Regional Complications none Indications This is a 63-year-old female who has clinical and radiographic findings consistent with osteoarthritis of the a right knee. I recommended that a right total knee replacement be performed. The patient understands the risks of surgery, which include but not limited to: bleeding, infection, re-operation, damage to nerves and arteries, continued knee pain, knee stiffness, DVT, and . The patient understands all of these instructions and explanations, all of his questions have been satisfactorily addressed and the patient has elected to proceed. Informed consent was signed. Description of Procedure IMPLANTS: 1. Femur: Triathlon #4 Right PS. 2. Tibia: Triathlon #4 [place]. 3. Insert: Triathlon #4 x 9 mm PS X3 poly. 4. Patella: Triathlon A32 x 10 mm X3 poly. 5. [place] cement. MARLON Hill PA-C is assisting with positioning, retracting, and closure due to fellow not available. Procedure: The patient was taken to the Operating Room and placed in the supine position after spinal and adductor canal nerve block was administered. My initials and a multidisciplinary time-out were used to identify the right leg as the correct operative limb. A tourniquet was placed high in the thigh. Prior to the incision, 2 grams of intravenous Ancef were given. The right leg was then prepped and draped in a standard sterile fashion. An Esmarch was used to exsanguinate the leg and the tourniquet was inflated to 250 mmHg. The planned mid-line 20 cm incision was created exposing the extensor mechanism. The medial parapatellar arthrotomy was made and the patella was everted. The patella was addressed first. It was prepared by reaming from 22 mm down to 11 mm. An A32 button was found to fit best. The peg holes were made in the standard fashion. The femur was addressed next and using computer assisted OrthoAlign with 3 degrees of flexion and 0 degrees of valgus, removing 10 mm in the standard fashion for the distal cut. The cut was made and the 4-in-1 cutting block for a size 4 femur was placed. These cuts and the cuts to place the box were made in the standard fashion. Our attention was then drawn to the tibia cut with using imageless computer assisted OrthoAlign, taking 2 mm from the medial low side. There was sufficient extension and flexion gap to fit a 9 mm spacer. A #4 Tibial baseplate fit well. A trial with a 9 mm spacer showed excellent stability in both flexion and extension, with good ligament balance, and thumbs free patellar tracking. Range of motion of 0-130 degrees. The tibial baseplate was prepped for the keel and stem. All components were removed. 90 ml of total knee cocktail were injected into the soft tissues and periosteum. All surfaces were copiously irrigated prior to placement of the components. The femoral component followed by Tibial baseplate were cemented in place and the 9 mm X3 poly was placed. Next, the patellar button was placed using the same cement. Once the cement had cured, the range of motion and stability were unchanged. The tourniquet was deflated. Hemostasis was obtained. The extensor mechanism was closed with 1-0 Vicryl and 0 Stratafix with the knee bent approximately 60 degrees in a standard fashion. The peritenon and deep fascia was closed with 2-0 Vicryl. The subcutaneous layer was closed with 3-0 Vicryl. The skin was closed with Zipline and shield. The limb was cleaned and dried. 4x4 dressing was placed over top followed by ABDs, sterile Webril, and a foot to thigh Ramesh bandage. The patient was then transferred to the Recovery Room in stable condition. The sponge and needle counts were correct. POST-OP INSTRUCTIONS: The patient will be WBAT. The patient will be admitted to the hospital. Complete 24-hour course antibiotics. Labs will be obtained during the stay. DVT prophylaxis will included aspirin for 6 weeks, TEDs, and mechanical foot pumps. The dressing will be changed postop day #2-3 and covered with a Silverlon dressing. I attest to the content of the Intraoperative Record and any orders documented therein. Any exceptions are noted below.
[2023-11-20] MEDS ORDERED: NALOXONE HCL 0.4 MG/1 ML VIAL/CARP IV PRN (12:30)
[2023-11-20] MEDS ORDERED: diphenhydrAMINE 50 MG/ML VIAL IV PRN (12:30)
[2023-11-20] MEDS ORDERED: ALUMINUM/MAGNESIUM SUSP 30 ML UDC PO PRN (12:30)
[2023-11-20] MEDS ORDERED: HYDROmorphone INJ 0.5 MG/0.5 ML SYR IV PRN (12:30)
[2023-11-20] MEDS ORDERED: METOCLOPRAMIDE HCL INJ 5 MG/ML 2 ML VIAL IV PRN (12:30)
[2023-11-20] MEDS ORDERED: MAGNESIUM HYDROXIDE SUSP 30 ML UDC PO PRN (12:30)
[2023-11-20] MEDS ORDERED: bisacodyL 10 MG SUPP PR PRN (12:30)
--- NOTE | 2023-11-20 12:30 | Operative Report ---
Post Operative Report Pre & Post Diagnosis Operation Date: 11/20/23 10:00 Pre-Op Diagnosis: Osteoarthritis Knee Right Post-Op Diagnosis: Osteoarthritis Knee Right I identified the patient and participated in the time-out.: Yes Procedure Operation Date: 11/20/23 10:00 Actual Procedures p Right Total Knee Arthroplasty(Right) - Nolan Buchanan MD Surgeon Nolan Buchanan MD [employer] MARLON Hill PA-C (No fellow avail) Estimated Blood Loss 75 Findings Consistent with Post-Op Diagnosis Specimens knee bone and soft tissue Description of Procedure I was present during the entire case assisting with positioning, prepping, draping, wound retraction, wound closure and dressing application. No fellow present. Please see Dr. Buchanan procedure note for specifics of the case. I attest to the content of the Intraoperative Record and any orders documented therein. Any exceptions are noted below.
[2023-11-20] MEDS ORDERED: CELEBREX PO SCH (12:45)
--- NOTE | 2023-11-20 13:27 | Anesthesiology Progress Note ---
Date of Service November 20, 2023 Anesthesia Post Procedure Vital Signs Vital Signs: Temp Pulse Resp BP Pulse Ox O2 Del Method O2 Flow Rate 11/20/23 13:20 60 14 107/69 98 Room Air 11/20/23 13:10 60 16 108/70 99 Room Air 11/20/23 13:00 58 L 16 110/66 97 Room Air 11/20/23 12:50 65 18 124/76 99 Room Air 11/20/23 12:40 66 22 119/74 96 Room Air 11/20/23 12:30 98.6 F 65 14 121/84 97 Oxymask 6 11/20/23 08:28 98.4 F 61 18 128/86 96 Room Air Transfer of Care Handoff Completed per policy Notes Mental Status: alert / awake / arousable and participated in evaluation Patient Amnestic to Procedure: Yes Nausea / Vomiting: adequately controlled Pain: adequately controlled Airway Patency, RR, SpO2: stable & adequate BP & HR: stable & adequate Hydration State: stable & adequate Neuraxial Anesthesia: was administered and sensory block is resolving Anesthetic Complications: no major complications apparent and Pt Satisfied with anesthetic care
--- NOTE | 2023-11-20 13:48 | XRay Report ---
RIGHT KNEE 2 VIEWS History: Right total knee arthroplasty. Degenerative arthritis. Postop. FINDINGS: The patient is status post a right total knee arthroplasty. The hardware is intact. No frac ture or dislocation. IMPRESSION: Right total knee arthroplasty. No evidence for hardware complication. ACT 112: Negative or not required by law. Electronically signed by: Vitor Wooten M.D. 11/20/2023 1:45 PM
[2023-11-20] MEDS: TRANEXAMIC ACID / 0.7% NACL 1000MG/100ML BAG IV ONE (14:11)
[2023-11-20] MEDS: SODIUM CHLORIDE 0.9% 1,000 ML IV SCH (15:11)
[2023-11-20] MEDS: KETOROLAC TROMETHAMINE 15 MG/ML VIAL IV SCH (15:51)
[2023-11-20] MEDS: Scopolamine CHECK PATCH PLACEMENT SCH (15:51)
--- NOTE | 2023-11-20 16:07 | Orthopedic Progress Note ---
Date of Service November 20, 2023 Assessment & Plan (1) Osteoarthritis of right knee: Plan: POD #0 s/p Right TKA, doing as well as expected. Resume diet. WBAT with walker. OOB to chair. Continue pain control. Check labs tomorrow. DVT prophylaxis: TEDs 3 weeks, foot pumps while in hospital, ASA 81 mg BID for 4 weeks. Hold Tamoxifen for 1 week. Change to Silverlon dressing POD 2-3. PT/OT. D/C planning. Present on Admission?: Yes Admission and Anticipated Discharge Date Admission Date: November 20, 2023 Subjective Cannot feel from waist down. Physical Exam Physical Exam: RLE: BCR < 2 sec. Sensation to light touch absent. Unable to wiggle toes or ankle. Calf soft and non-tender. Dressing is clean, dry, intact. Results & Data Vital Signs (Past 12 Hours) Vital Signs Temp Pulse Pulse Resp BP Pulse Ox O2 Del Method 11/20/23 15:09 36.9 C 62 16 125/79 100 Room Air 11/20/23 14:20 37.0 C 61 17 125/76 98 Room Air 11/20/23 13:45 36.5 C 62 16 123/75 98 Room Air 11/20/23 13:30 58 L 16 109/64 98 Room Air 11/20/23 13:20 60 14 107/69 98 Room Air 11/20/23 13:10 60 16 108/70 99 Room Air 11/20/23 13:00 58 L 16 110/66 97 Room Air 11/20/23 12:50 65 18 124/76 99 Room Air 11/20/23 12:40 66 22 119/74 96 Room Air 11/20/23 12:30 37 C 65 14 121/84 97 Oxymask 11/20/23 08:28 36.9 C 61 18 128/86 96 Room Air O2 Flow Rate 11/20/23 15:09 11/20/23 14:20 11/20/23 13:45 11/20/23 13:30 11/20/23 13:20 11/20/23 13:10 11/20/23 13:00 11/20/23 12:50 11/20/23 12:40 11/20/23 12:30 6 11/20/23 08:28 Diagnostic Findings RIGHT KNEE 2 VIEWS History: Right total knee arthroplasty. Degenerative arthritis. Postop. FINDINGS: The patient is status post a right total knee arthroplasty. The hardware is intact. No fracture or dislocation. IMPRESSION: Right total knee arthroplasty. No evidence for hardware complication. ACT 112: Negative or not required by law. Electronically signed by: Vitor Wooten M.D. 11/20/2023 1:45 PM
[2023-11-20] MEDS: oxyCODONE HCL IR 5 MG TAB (IMMEDIATE RELEASE) PO PRN (17:29)
[2023-11-20] MEDS: ASCORBIC ACID 500 MG TAB PO SCH (17:30)
[2023-11-20] MEDS: FERROUS GLUCONATE 324 MG TAB PO SCH (17:30)
[2023-11-20] MEDS: SENNA 8.6 MG TAB PO SCH (20:14)
[2023-11-20] MEDS: DOCUSATE SODIUM 100 MG CAP PO SCH (20:14)
[2023-11-21 03:18] VITALS: RESP 16
[2023-11-21 05:46] LABS: Hematocrit (blood only) 32.7 % (37.0-47.0); Hemoglobin 10.8 g/dl (12.0-16.0); Mean Corpuscular Hemoglobin 31.7 pg (25.0-34.0); Mean Corpuscular Volume 95.9 fL (80.0-100.0); Mean Platelet Volume 10.4 fL (9.4-12.4); Platelet Count 212 K/uL (130-400); RDW Coefficient of Variation 13.1 % (11.5-14.5); RDW Standard Deviation 45.9 fL (36.4-46.3); Red Blood Count 3.41 M/uL (4.20-5.40); White Blood Count 8.67 K/ul (4.8-10.8)
[2023-11-21 05:59] LABS: BUN Creatinine Ratio 18.9 (10-20); Calcium 8.6 mg/dl (8.6-10.3); Creatinine Clr Calc Pharmacy 58.9 ml/min; Est GFR (African American) 79.4 ml/min; Est GFR (Non-African American) 68.5 ml/min; Potassium 3.8 mmol/L (3.5-5.1)
[2023-11-21 07:12] VITALS: BP 112/67; PULSE 48; TEMP 97.9; O2SAT 99
[2023-11-21] MEDS: dexAMETHasone 4 MG TAB PO SCH (07:23)
--- NOTE | 2023-11-21 08:24 | Orthopedic Progress Note ---
Date of Service November 21, 2023 Assessment & Plan (1) Osteoarthritis of right knee: Plan: POD #1 s/p Right TKA, with post-op knee pain. Resume diet. WBAT with walker. OOB to chair. Continue pain control. DVT prophylaxis: TEDs 3 weeks, foot pumps while in hospital, Eliquis 2.5 mg BID for 4 weeks. Hold Tamoxifen for 1 week. Change to Silverlon dressing POD 2-3. PT/OT. D/C planning, for rehab vs home, pain level still requiring IV pain medicine, will keep today and re-evaluate tomorrow. Admission and Anticipated Discharge Date Admission Date: November 20, 2023 Subjective Rough night with right knee/calf pain. Physical Exam Physical Exam: RLE: BCR < 2 sec. Sensation to light touch intact. Wiggles toes or ankle. Calf soft and non-tender. Dressing is clean, dry, intact. Unable to preform straight leg raise. Results & Data Vital Signs (Past 12 Hours) Vital Signs Temp Pulse Resp BP Pulse Ox O2 Del Method 11/21/23 07:11 36.6 C 48 L 16 112/67 99 Room Air 11/21/23 03:17 36.4 C L 57 L 16 119/75 96 Room Air 11/20/23 23:14 36.6 C 59 L 18 117/71 97 Room Air Laboratory Results Laboratory Results WBC 8.67 K/ul (4.8-10.8) 11/21/23 05:22 RBC 3.41 M/uL (4.20-5.40) L 11/21/23 05:22 Hgb 10.8 g/dl (12.0-16.0) L 11/21/23 05:22 Hct 32.7 % (37.0-47.0) L 11/21/23 05:22 MCV 95.9 fL (80.0-100.0) 11/21/23 05:22 MCH 31.7 pg (25.0-34.0) 11/21/23 05:22 MCHC 33.0 g/dL (32.0-36.0) 11/21/23 05:22 RDW Std Deviation 45.9 fL (36.4-46.3) 11/21/23 05:22 RDW Coeff of [place] 13.1 % (11.5-14.5) 11/21/23 05:22 Plt Count 212 K/uL (130-400) 11/21/23 05:22 MPV 10.4 fL (9.4-12.4) 11/21/23 05:22 Sodium 140 mmol/L (136-145) 11/21/23 05:22 Potassium 3.8 mmol/L (3.5-5.1) 11/21/23 05:22 Chloride 108 mmol/L (98-107) H 11/21/23 05:22 Carbon Dioxide 27 mmol/L (21-32) 11/21/23 05:22 Anion Gap 5 (3-11) 11/21/23 05:22 BUN 17 mg/dl (6-23) 11/21/23 05:22 Creatinine 0.90 mg/dl (0.6-1.2) 11/21/23 05:22 Est Cr Clr Drug Dosing 58.9 ml/min 11/21/23 05:22 Est GFR ( Amer) 79.4 ml/min 11/21/23 05:22 Est GFR (Non-Af Amer) 68.5 ml/min 11/21/23 05:22 BUN/Creatinine Ratio 18.9 (10-20) 11/21/23 05:22 Glucose 91 mg/dl (70-99(Fasting)) 11/21/23 05:22 Calcium 8.6 mg/dl (8.6-10.3) 11/21/23 05:22 Impressions Knee X-Ray 11/20/23 12:30 RIGHT KNEE 2 VIEWS History: Right total knee arthroplasty. Degenerative arthritis. Postop. FINDINGS: The patient is status post a right total knee arthroplasty. The hardware is intact. No fracture or dislocation. IMPRESSION: Right total knee arthroplasty. No evidence for hardware complication. ACT 112: Negative or not required by law. Electronically signed by: Vitor Wooten M.D. 11/20/2023 1:45 PM
[2023-11-21] MEDS: MULTIVITAMIN TAB PO SCH (09:33)
[2023-11-21] MEDS: CALCIUM 600MG + VIT D 400 IU TAB PO SCH (09:33)
[2023-11-21] MEDS: CHOLECALCIFEROL 25 MCG (1000 UNITS) TAB PO SCH (09:33)
[2023-11-21] MEDS: VITAMIN B COMPLEX TAB PO SCH (09:33)
[2023-11-21] MEDS: APIXABAN 2.5 MG TAB PO SCH (09:33)
--- NOTE | 2023-11-21 10:59 | Discharge Summary ---
Date of Service November 21, 2023 Admission HPI Per Admitting Provider History of Present Illness (including history relevant to procedure): This 63-year-old female presents to the clinic today for preoperative history and physical. Patient complains of longstanding history of bilateral knee pain with the right knee becoming much more severe over the past year. Patient denies any specific injury that may have exacerbated her pain. She has failed conservative treatment with viscosupplementation injections, steroid injections, oral nonsteroidal agents and physical therapy. Patient is electing to proceed with surgical intervention at this time. Review Of Systems: A 12 point review of systems is performed and is unremarkable except for those things stated in the HPI and past medical history. Past Medical History: Problems: VITAMIN D DEFICIENCY DCIS (ductal carcinoma in situ) B12 deficiency anemia Strain of calf muscle Low back pain Hyperhomocystinemia Annual physical exam Bilateral primary osteoarthritis of knee Bilateral knee pain Diverticulosis Leg pain, bilateral Postmenopausal estrogen deficiency Pes anserinus bursitis of left knee Sprain of MCL joint of knee DEGENERATION OF INTERVERTEBRAL DISC, SITE UNSPECIFIED VON WILLEBRAND'S DISEASE Tendonitis, tibialis Procedure History Procedure Procedure Date Comments DEXA - dual energy X-ray absorptiometry 10/19/2023 - SPINE: T score = -0.4 WNLHIP: T Score = -0.9 WNL Colonoscopy 12/11/2022 - - Diverticulosis in the left colon. - The examination was otherwise normal on direct and retroflexion views. - No specimens collected. - Repeat colonoscopy in 5 years for surveillance. Esophagogastroduodenoscopy 09/13/2022 - PATHOLOGY: Gastric antrumGreater Curvature: Reactive gastropathy with intestinal metaplasia. Gastric antrumLesser Curvature: Mild reactive gastropathy with focal intestinal metaplasia. Gastric Incisura: Mild reactive gasgtropathy. GastricBody, Lesser Curvature: No significant pathologic changes. Gastric Body, Greater Curvature: No significant pathologic changes. Duodenum: No significant pathologic changes: REPEAT 3 YEARS. - EGD stomach nl but bx done for gastric mapping. 2nd duod nl bx Ultrasound of pelvis and perineum 08/11/2022 - 1) Slightly irregular and borderline thickened endometrium measuring up to 7.7 with a few small subendometrial cysts. No definite endometrial masses identified. This endometrial irregularity/thickening is nonspecific but in the abscence of vaginal bleeding could represent long-standing tamoxifen therapy. 2) Normal right ovary. 3) The left ovary obscured by overlying bowel gas. X-ray of left knee 07/13/2022 - Osteopenia and degenerative change as above with no acute bony abnormality identified. Degenerative change has progressed as compared to 2017. X-ray of right knee 07/13/2022 - Degenerative changes without evidence of acute injury Pap smear and HPV cotesting 03/23/2020 - WNL Pulmonary function test 10/17/2018 - normal spirometry lung volumes and diffusing capacity of the lung for carbon monoxide. there was slight improvement after inhaled bronchodilator in both fev1 and [id number], possibly indicating some very mild reactive airways disease. clinical correlation is needed Chest CT 08/23/2018 - 1. No acute intrathoracic abnormality identified , specifically no evidence of pulmonary thromboembolic disease. 2. No adenopathy or focal airspace consolidation typical for pneumonia. 3. No evidence of radiation fibrosis or metastatic disease. 4. Postoperative changes of the left breast and left axilla. Foot 03/2018 Colonoscopy 11/16/2017 - Diverticulosis in the sigmoid colonNo specimens collected PAP test date 05/03/2017 Left breast 04/23/2017 - excision Breast lumpectomy 04/09/2017 - left Pathology report 03/07/2017 - Left breast, upper outer wuadrant stereotactic-guided core biopsy. 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 Size in greatest dimension on glass slide 7 mm. estrogen receptor-negataive. Progesterone reeptor negative - Impression:Stereotactic biopsy of indeterminate calcifications in the left upper out quadrant, with clip placement. Diagnostic mammogram 02/28/2017 Mammogram 02/19/2017 - Grouped calcifications in left superior breast, for which additional evaluation is recommended. - No malignancy. One year screening recommended. - No malignancy. One year screening recommended. MRI 10/30/2016 - Impression:Left knee.1. Medial and leteral meniscal tears as described above2. Tiny cyst-like structure deep to the intact MCL. This is consistent with a mild MCL bursitis.3. Mild to moderate tricompartmental osteoarthritis most notable within the medial compartment.4. Small popliteal cyst. Papanicolaou smear 04/17/2016 - Negative for intraepithelial lesion or malignancy. umbilical hernia repair 10/29/2012 Colonoscopy normal 09/13/2011 Gabbs Teeth extraction About 1978 Allergies and Sensitivities: anastrozole(felt very poorly on it) Current Home Meds: (Last Updated 11/13 15:11) celecoxib (CeleBREX 200 mg oral capsule) 200 mg PO Daily PRN: as needed for pain contents of capsule may be mixed with soft foods such as applesauce cholecalciferol (Vitamin D3 2000 intl units (50 mcg) oral capsule) 50 mcg PO Daily cyanocobalamin (Vitamin B12) 1,000 mcg PO Daily tamoxifen (tamoxifen 20 mg oral tablet) 20 mg PO Daily unknown medication (Calcium) 2,000 mg PO Daily Principal Diagnosis s/p right total knee arthroplasty Discharge Exam RLE: BCR < 2 sec. Sensation to light touch intact. Wiggles toes or ankle. Calf soft and non-tender. Dressing is clean, dry, intact. Unable to preform straight leg raise. Discharge Data Allergies Allergy/AdvReac Type Severity Reaction Status Date / Time No Known Allergies Allergy Mild Verified 11/20/23 08:26 Procedures Performed Operation Date: 11/20/23 10:00 Actual Procedures p Right Total Knee Arthroplasty(Right) - Nolan Buchanan MD Ordered Studies 11/20/23 05:00 US - OR guided needle placemen Routine Hospital Course (1) Osteoarthritis of right knee: POD #1 s/p Right TKA WBAT with walker PT/OT Diet - regular Frequently ice and elevate with blankets stacked under ankle DVT prophylaxis: Eliquis 2.5mg BID x 4 weeks, TEDS x 3 weeks, foot pumps while in hospital Pain control: Tylenol 1000mg q 8hrs, oxycodone 5-10mg q4-6 hrs for moderate pain Vitamin C and Iron supplementation BID x 2 weeks Dressing: keep in tact, will change outpatient in 2-3 days Discharge home with home health x 2 weeks Follow up as scheduled with [facility] Total Time Total Time Spent Total Time Spent (In Minutes): 15 Discharge Plan Discharge Items Patient Disposition: Home - Home Health Services Reason For Visit: Osteoarthritis Knee Right Discharge Diagnosis: Right knee osteoarthritis Activity: As commented below Lifting: None Bathing: Keep incision dry and May shower/bathe in 3 days Sexual Activity: Wait until after follow-up appointment Exercise/Sports: Wait until after follow-up appointment Weightbearing Comment: as tolerate with walker Non-emergency contact: Surgeon Call non-emergency contact if: you have any medication questions, your pain is not controlled, your temperature is above 101.5, your wound has increased drainage and your wound pain has increased Follow-up/Referrals: Henri Hill PA-C [Physician Ballast Cleaning Machine Operator] - 12/04/23 4:00 pm Casimiro Pierre [Primary Care Provider] - Gloria Butler PA-C [Physician Ballast Cleaning Machine Operator] - 11/23/23 1:00 pm Diet: Regular Addtl Attending Provider Instructions: POST OPERATIVE DISCHARGE INSTRUCTIONS Pain Control Please take the follow medications for pain control, as well as icing and elevating your operative extremity. Pain after surgery is to be expected. We may not be able to take away all of your pain, but the goal is to make your pain manageable - Extra strength Tylenol 1,000mg (2 tabs) every 8 hours - Oxycodone 5-10mg (1-2tabs) every 4-6 hours as needed Additional medications - Colace 100 mg twice daily while on pain medication. This is cqel-rtb-sgrgmir. Hold for soft stools. - Tylenol 1000 mg every 8 hours as needed for pain. May take scheduled for the first 5 to 7 days after surgery. - Iron supplement 324 milligrams twice daily. Take with vitamin C. Obtain guky-bdk-gkatile. - Vitamin C 500 mg twice daily. Take with iron supplement. Obtain tqnw-ero-zwopcpt. - Eliquis 2.5mg twice daily x 6 weeks after your surgery. This is to thin your blood to prevent a blood clot. Take for 6 weeks after surgery. DVT Prophylaxis With any surgery, you are at increased risk for blood clots. Please take the follow measures to prevent blood clots and read the warning signs to watch for. Please take the follow anticoagulant: Eliquis 2.5 mg twice daily. Take for 6 weeks after surgery. If you were given KATTY compression stockings, these are to be worn on both legs for 18-20 hours daily for 2 weeks, or for 3 weeks for any lower extremity surgery. Warning signs: Calf pain, lower extremity swelling, numbness/tingling, skin discoloration, increased pain, shortness of breath, chest pain. Please contact our office if you experience any of these symptoms or call 911 if you are having trouble breathing. Ice Ice your operative site at least 5 times a day for 15-30 minutes at a time, for the first three days, then as needed. This will help to reduce swelling and pain. Make sure you have a thin cloth between the ice or cooling unit and your skin to prevent borden bite. This is especially important if you received a nerve block. Diet/Nausea/Vomiting Start by drinking clear liquids and eating crackers. If you can tolerate this, then you may resume your normal diet. If you feel nauseated or vomit, take Zofran/ondansetron (if prescribed). Please call our office if you have intractable nausea or vomiting, or, if after hours, you may go to the Emergency Room for help. Surgical Dressing Please leave on any dressing until you are seen by either PT or PA for your post-operative appointment, unless you are otherwise instructed. If there are any issues with your dressing please give our office a call. Weight bearing, Range of Motion, Activity You will be weight bearing as tolerated on your operative site. you may use crutches or walker to assist in ambulation at all times. Physical therapy You will do your rehab for the first two weeks with home health. Then you will begin outpatient physical therapy. It is very important you follow your rehab protocol and do your exercises as instructed by your provider and physical therapist. Your therapist will progress your range of motion as instructed. Allowed for quad sets, ankle pumps, gluteal squeezes as directed by your therapist. Wound care and showering We will inspect your wound at your first post-operative visit. It is normal to see some dried blood on the dressing. Do not remove your dressing, paper strips or sutures yourself unless otherwise instructed. Showering is allowed post op day 3. Do not scrub or remove any dressings, unless you are otherwise instructed. Once your dressing is changed in the office to the water-resistant dressing. You can shower with this on as long as all the edges are in tact. To promote wound healing, we recommend taking a multi-vitamin, or taking 500mg Vitamin C supplement twice a day for two weeks and 325mg Iron supplement twice a day for two weeks. This is especially important if you had a total joint replacement. Constipation Constipation is a common side effect of narcotic pain medication, dehydration after surgery and iron supplement (if you were instructed to begin that after surgery). We recommend purchasing an opih-nzo-qizrjbg laxative such as Milk of Magnesia, Colace, Dulcolax, Miralax or Senna from a local pharmacy, and taking it as instructed. Stay hydrated and you may increase your fiber in your diet as well. Call our clinic if any questions. Driving You may not drive while taking narcotic pain medication or while in a cast, splint, sling or brace. Driving will be discussed at your first post op appointment Return to Work Your return to work depends on what surgery was done and what type of work you do. Please bring any paperwork your employer needs completed to your first post-operative visit. Also, bring a description of your job duties, as this helps us to understand what risks you may face at work. Travel Avoid long distance travel (greater than 1 hour) in airplanes and cars for the first 6 weeks after surgery. Follow-up Please attend your post operative appointments as scheduled. At these appointments, we may do dressing change and remove any sutures/lolly/Zip-line 10-14 days after your surgery. If you do not know your post operative appointment dates or times please call the office at [phone] When to call the office It is normal to have swelling and bruising in the limb that was operated on. This will improve with time. It is also normal to have fevers for the first 2 days after surgery. Reasons you should call your doctor include: Uncontrolled pain; Nausea, vomiting, or constipation that does not improve with medication; Fevers over 101.5, chills, sweats; Drainage or bleeding from the wound; Foul odor; Spreading areas of redness; calf pain or swelling, shortness of breath, chest pain; Any other concerns You may call the office at [phone]. If it is a medical emergency please call 911. Pending Studies at Discharge: No Stand-Alone Forms: My [facility], Smoking Cessation Medications and DC Order Prescriptions: New acetaminophen [Tylenol Extra Strength] 500 mg Tablet 1,000 mg PO Q8 Qty: 30 0RF oxycodone 5 mg Tablet 5 - 10 mg PO Q4H PRN (Reason: pain) Qty: 18 0RF Rx Instructions: 5mg for pain 1-5 10mg for pain 6-10 ferrous gluconate 324 mg (38 mg iron) Tablet 324 mg PO BIDM 14 Days Qty: 28 0RF Eliquis 2.5 mg Tablet 2.5 mg PO BID 42 Days Qty: 84 0RF ascorbic acid (vitamin C) [Vitamin C] 500 mg Tablet 500 mg PO BIDM 14 Days Qty: 28 0RF docusate sodium 100 mg Capsule 100 mg PO BID 14 Days Qty: 28 0RF Continued cholecalciferol (vitamin D3) 1 tab PO QAM vitamin B complex [B Complex-Vitamin B12] 1,000 mg PO QAM tamoxifen 20 mg tablet 20 mg PO HS Celebrex 1 cap PO UD Patient Comments: only taking this as needed calcium 600 mg PO QAM Admission Data Admit Date/Time: 11/20/23 12:30 Attending Provider: Nolan Buchanan Admit Provider: Nolan Buchanan Primary Care Provider: Casimiro Pierre Other Providers: [facility] Other Interventions: Discharge Summary Assessment (RN) Last Done: 11/21/23 10:14
[2023-11-21] MEDS ORDERED: CeleBREX 200 MG CAP PO SCH (21:00)
== END 2023-11-21 11:01 | disposition home health service (06) ==
LOC: 3E 07:53 → ASU 07:53

== ENCOUNTER 2024-03-04 07:30 | Observation (INO) ==
--- NOTE | 2024-02-26 08:53 | Anesthesiology Consultation ---
Date of Service February 26, 2024 Assessment & Plan (1) Encounter for pre-operative examination: Chart Review Chart Review: Acceptable Risk for Surgery (pending DOS labs ) and Patient NOT seen in Pre Admission Testing - Check BMP and coags stat DOS (not done preoperatively) Pt currently scheduled as 23 hours observation. If surgeon decides to change patient to Same Day Joint, patient would be acceptable risk for TKA, pending patient is motivated, has good support and surgeon's office completes [facility] preop requirements. -Infectious Disease screening: Per PAT nursing assessment on 02/25/24. No known infectious disease contacts in past 10 days or current infectious disease symptoms. No recent travel outside the country. Seen by PCP 01/14/24= seen for preop for upcoming left TKA. Intermediate risk surgery. Does NOT have von Willebrands per recent eval with heme/onc. Revised Cardiac Risk Index score= 0. 0.4%. Medically patient is cleared for orthopedic procedure. Should hold Tamoxifen 2 weeks prior to surgery than restart once cleared from surgery Per heme phone note 01/10/24 re: upcoming left TKA = "No need of clearance from me. Should hold Tamoxifen 2 weeks prior to surgery then restart once cleared from surgery. She did see hematology (Dr Millie Atwood) recently- refer to their notes for hematology issue but appears she has no bleeding disorder and no clearance should be needed. Right TKA 11/20/23= Done under [facility] at L3-4 with 1 attempt Seen by hematology for pre-operative evaluation 11/12/23= "...perioperative management of her longstanding diagnosis of von Willebrand disease...right total knee replacement...clearly has no underlying bleeding disorder, having undergone uneventful extraction of her wisdom teeth, 2 FTSDs, a partial mastectomy, and numerous knee injections with no prophylaxis of any kind...I think her initial low vWF activity result was a false positive. With her absence of bleeding following her partial mastectomy in 2018 and her repeatedly normal vWD test results x 3 in 2001, 2007 and at this visit, I feel confident that she does NOT have vWD. Therefore she does not need any prophylactic hemostatic treatment and there is no contraindication to ASA 81 mg x 30 days post op..." History Surgery Operation Date: 03/04/24 07:00 Proposed Procedures p Left Total Knee Arthroplasty - Nolan Carmencita Buchanan MD Height/Weight Height: 5 ft 5 in Weight: 61.235 kg Allergies Allergy/AdvReac Type Severity Reaction Status Date / Time tramadol Allergy Intermediate Hives Verified 02/25/24 08:22 Medications Home Medications Medication Instructions Recorded Confirmed Last Taken cholecalciferol (vitamin D3) 1 tab PO QAM 12/20/22 02/25/24 11/19/23 07:00 calcium 600 mg PO QAM 10/29/23 02/25/24 11/19/23 07:00 tamoxifen 20 mg tablet 20 mg PO HS 10/29/23 02/25/24 11/15/23 acetaminophen 500 mg tablet 1,000 mg PO Q8 PRN Pain 01/03/24 02/25/24 Unknown (Tylenol Extra Strength) vitamin B complex 1 tab PO QAM 02/25/24 02/25/24 Unknown Past Medical History Medical History Hx of breast cancer s/p left lumpectomy 04/2017-denies limb restriction Osteoarthritis of right knee Von Willebrand disease patient does not have vWD per hematology [facility] 11/12/23 note>pt states "was mis-diagnosed years ago by Dr. Covarrubias" Past Family History Family History Son Family hx colonic polyps Father Family hx colonic polyps Other Diabetes Heart disease Hypertension No family history of adverse response to anesthesia Thyroid disorder Denies family history of Ovarian cancer Breast cancer Colorectal cancer Uterine cancer Past Surgical History Surgical History History of breast biopsy left--malignant History of colonoscopy History of lumpectomy of left breast [place]04[place] [facility] of [place] Right[place]11[place]2023 [place] History of umbilical hernia repair [place] teeth removed Social History Smoking Status: Never smoker Do You Dip or Chew Tobacco: No Hx Alcohol Use: Yes Alcohol type: wine alcohol intake frequency: a few times a month Hx Substance Use: No substance use type: does not use Testing Laboratory Results 02/14/24= WBC: 5.7 H/H: 12.3/38.9 PLATELETS: 307 Electrocardiogram Date: 11/01/23 NSR, rate 64 bpm Chest X-Ray Date: 11/01/23 No acute chest disease.
[~2024-03-04 07:30] MED LIST changes: -General Order Problem(s) SCH; -KETOROLAC 30 MG/ML VIAL ONE; +LR 500ML BOLUS, THEN 15ML/HR IV SCH; +LR 60ML/HR IV SCH; -MIDAZOLAM HCL 1 MG/ML 2ML VIAL ONE; -PROPOFOL IV EMULSION 10 MG/ML 20 ML VIAL IV ONE; -fentaNYL citrate PF 100 MCG/2 ML VIAL ONE
[2024-03-04] MEDS: Scopolamine 1 MG TDSY TD SCH (08:18)
[2024-03-04] MEDS: ACETAMINOPHEN 500 MG TAB PO SCH ×2 (08:18→15:13)
[2024-03-04] MEDS: CeleBREX 200 MG CAP PO SCH (08:18)
[2024-03-04] MEDS: GABAPENTIN 600 MG DOSE PO SCH (08:18)
[2024-03-04] MEDS: SODIUM CHLORIDE 0.9% 1,000 ML IV SCH (08:21)
[2024-03-04 08:25] LABS: BUN Creatinine Ratio 19.3 (10-20); Calcium 9.5 mg/dl (8.6-10.3); Creatinine Clr Calc Pharmacy 63.2 ml/min; Potassium 4.1 mmol/L (3.5-5.1)
[2024-03-04 08:33] LABS: Partial Thromboplastin Time 28 Seconds (21-31); Prothrombin Time 10.8 Seconds (9.0-12.0)
[2024-03-04] MEDS ORDERED: PROPOFOL IV EMULSION 10 MG/ML 20 ML VIAL IV ONE (08:58)
[2024-03-04] MEDS ORDERED: LIDOCAINE 2% 2 ML VIAL/AMP(20MG/ML) INFIL ONE (08:59)
--- NOTE | 2024-03-04 09:22 | History & Physical Bridge Note ---
Date of Service March 04, 2024 History & Physical Bridge Note I have examined the patient, reviewed the History & Physical and in the interval since the performance of the History & Physical I have noted the following changes of clinical significance: no changes noted
[2024-03-04] MEDS: SODIUM CHLORIDE 0.9% 500 ML IV ONE (09:23)
[2024-03-04] MEDS ORDERED: fentaNYL citrate PF 100 MCG/2 ML VIAL ONE (09:28)
[2024-03-04] MEDS ORDERED: MIDAZOLAM HCL 1 MG/ML 2ML VIAL ONE (09:28)
[2024-03-04] MEDS: TRANEXAMIC ACID 1,000 MG **IV Pre-op IV SCH (09:43)
[2024-03-04] MEDS: ceFAZolin 2000MG 2,000 MG/15 ML SYR IV SCH ×2 (09:57→18:27)
[2024-03-04] MEDS: ROPIV 0.5% 246mg, Ketorolac 30mg, EPINEPHrine 0.5mg in NSS INFIL SCH (10:35)
[2024-03-04] MEDS: ORTHO JOINT ANESTHETIC ONE (10:35)
[2024-03-04] MEDS: TRANEXAMIC ACID 1,000 MG **IV Intra-op IV SCH (11:52)
--- NOTE | 2024-03-04 12:19 | Operative Report ---
Post Operative Report Pre & Post Diagnosis Operation Date: 03/04/24 09:50 Pre-Op Diagnosis: Left Knee Osteoarthritis Post-Op Diagnosis: Left Knee Osteoarthritis I identified the patient and participated in the time-out.: Yes Procedure Operation Date: 03/04/24 09:50 Actual Procedures p [Left] Total knee replacement, imageless computer assisted navigation (Left) - Nolan Buchanan MD Surgeon Nolan Buchanan MD Innersole Fitter MARLON Hill PA-C (No fellow avail) Estimated Blood Loss 50 Findings See Below Examined Under Anesthesia: ROM -- There was 5 degrees to 125 degrees of flexion Ligamentous examination -- revealed stable Jenny, posterior drawer, varus and valgus stress at 0 and 30 degrees. Outerbridge Grade IV changes of Medial compartment and patellofemoral compartment, grade III lateral compartment. Fluids 1000 cc Specimens Left knee contents Anesthesia Type MAC Spinal Regional Complications none Indications This is a 63-year-old female who has clinical and radiographic findings consistent with osteoarthritis of the a left knee. I recommended that a left total knee replacement be performed. The patient understands the risks of surgery, which include but not limited to: bleeding, infection, re-operation, damage to nerves and arteries, continued knee pain, knee stiffness, DVT, and . The patient understands all these instructions and explanations, all his questions have been satisfactorily addressed and the patient has elected to proceed. Informed consent was signed. Description of Procedure IMPLANTS: 1. Femur: Triathlon #4 Left PS. 2. Tibia: Triathlon #4 [place] . 3. Insert: Triathlon #4 x 11 mm PS X3 poly. 4. Patella: Triathlon A32 x 10 mm X3 poly. 5. Palacos cement. MARLON Hill PA-C is assisting with positioning, retracting, and closure due to fellow not available. Procedure: The patient was taken to the Operating Room and placed in the supine position after spinal and adductor canal nerve block was administered. My initials and a multidisciplinary time-out were used to identify the left leg as the correct operative limb. A tourniquet was placed high in the thigh. Prior to the incisi on, 2 grams of intravenous Ancef were given. One g of TXA was given pre- operatively and another after the tourniquet was released. The left leg was then prepped and draped in a standard sterile fashion. An Esmarch was used to exsanguinate the leg and the tourniquet was inflated to 250 mmHg. The planned mid-line 20 cm incision was created exposing the extensor mechanism. The medial parapatellar arthrotomy was made and the patella was everted. The patella was addressed first. It was prepared by reaming from 22 mm down to 12 mm. An A32 button was found to fit best. The peg holes were made in the standard fashion. The femur was addressed next and using computer assisted OrthoAlign with 3 degrees of flexion and 0 degrees of valgus, removing 10 mm in the standard fashion for the distal cut. The cut was made and the 4-in-1 cutting block for a size 4 femur was placed. These cuts and the cuts to place the box were made in the standard fashion. Our attention was then drawn to the tibia cut with using imageless computer assisted OrthoAlign, taking 2 mm from the medial low side. There was sufficient extension, but tight flexion gap medially. A 1.5 deg varus cutting block was u sed in the standard fashion. A #4 Tibial baseplate fit well. A trial with a 11 mm spacer showed excellent stability in both flexion and extension, with good ligament balance, and thumbs free patellar tracking. Range of motion of 0-135 degrees. The tibial baseplate was prepped for the keel and stem. All components were removed. 90 ml of total knee cocktail were injected into the soft tissues and periosteum. All surfaces were copiously irrigated prior to placement of the components. The femoral component followed by Tibial baseplate were cemented in place and a 11mm trial placed. Next, the patellar button was placed using the same cement. Once the cement had cured, the range of motion and stability were unchanged. The 11 mm X3 poly was placed. Again, the range of motion and stability were unchanged. The tourniquet was deflated. Hemostasis was obtained. Another 1g TXA was given. The extensor mechanism was closed with 1-0 Vicryl and 0 Stratafix with the knee bent approximately 60 degrees in a standard fashion. The peritenon and deep fascia was closed with 2-0 Vicryl. The subcutaneous layer was closed with 3-0 Vicryl. The skin was closed with Zipline and shield. The limb was cleaned and dried. 4x4 dressing was placed over top followed by ABDs, sterile Webril, and a foot to thigh Ramesh bandage. The patient was then transferred to the Recovery Room in stable condition. The sponge and needle counts were correct. POST-OP INSTRUCTIONS: The patient will be WBAT. The patient will be admitted to the hospital. Complete 24-hour course antibiotics. Labs will be obtained during the stay. DVT prophylaxis will include Eliquis for 6 weeks, TEDs, and mechanical foot pumps. The dressing will be changed postop day #2-3 and covered with a Beatrice verlon dressing. I attest to the content of the Intraoperative Record and any orders documented therein. Any exceptions are noted below.
--- NOTE | 2024-03-04 12:19 | Post Operative Brief Note ---
Immediate Post Op Note Date of Surgery March 04, 2024 Pre & Post Diagnosis Operation Date: 03/04/24 09:50 Pre-Op Diagnosis: Left Knee Osteoarthritis Post-Op Diagnosis: Left Knee Osteoarthritis I identified the patient and participated in the time-out.: Yes Procedure Operation Date: 03/04/24 09:50 Actual Procedures p Left Total Knee Arthroplasty(Left) - Nolan Buchanan MD Surgeon Nolan Buchanan MD Case Manager MARLON Hill PA-C (No fellow avail) Estimated Blood Loss 50 Findings See Below Fluids 1000 cc Specimens Left knee contents Anesthesia Type MAC Spinal Regional Complications none
[2024-03-04] MEDS ORDERED: NALOXONE HCL 0.4 MG/1 ML VIAL/CARP IV PRN (12:33)
[2024-03-04] MEDS ORDERED: ONDANSETRON INJ 2 MG/ML 2 ML VIAL IV PRN (12:33)
[2024-03-04] MEDS ORDERED: ALUMINUM/MAGNESIUM SUSP 30 ML UDC PO PRN (12:33)
[2024-03-04] MEDS ORDERED: bisacodyL 10 MG SUPP PR PRN (12:33)
[2024-03-04] MEDS ORDERED: METOCLOPRAMIDE HCL INJ 5 MG/ML 2 ML VIAL IV PRN (12:33)
[2024-03-04] MEDS ORDERED: HYDROmorphone INJ 0.5 MG/0.5 ML SYR IV PRN (12:33)
[2024-03-04] MEDS ORDERED: MAGNESIUM HYDROXIDE SUSP 30 ML UDC PO PRN (12:33)
[2024-03-04] MEDS ORDERED: diphenhydrAMINE 50 MG/ML VIAL IV PRN (12:33)
--- NOTE | 2024-03-04 12:33 | Operative Report ---
Post Operative Report Pre & Post Diagnosis Operation Date: 03/04/24 09:50 Pre-Op Diagnosis: Left Knee Osteoarthritis Post-Op Diagnosis: Left Knee Osteoarthritis I identified the patient and participated in the time-out.: Yes Procedure Operation Date: 03/04/24 09:50 Actual Procedures p Left Total Knee Arthroplasty(Left) - Nolan Buchanan MD Surgeon Julio C Buchanan MD Craft Recruiter MARLON Hill PA-C (No fellow avail) Estimated Blood Loss 50 Findings Consistent with Post-Op Diagnosis Specimens left knee bone and soft tissue Description of Procedure I was present during the entire case assisting with positioning, prepping, draping, wound retraction, wound closure and dressing application. No fellow present. Please see Dr. Buchanan procedure note for specifics of the case. I attest to the content of the Intraoperative Record and any orders documented therein. Any exceptions are noted below.
--- NOTE | 2024-03-04 13:37 | Anesthesiology Progress Note ---
Date of Service March 04, 2024 Anesthesia Post Procedure Vital Signs Vital Signs: Temp Pulse Pulse Resp BP Pulse Ox O2 Del Method 03/04/24 13:20 36.4 C L 67 12 118/72 98 Room Air 03/04/24 13:10 68 13 126/72 97 Room Air 03/04/24 13:00 67 15 135/75 96 Room Air 03/04/24 12:50 66 15 122/70 93 Room Air 03/04/24 12:40 68 14 124/71 100 Oxymask 03/04/24 12:31 36.2 C L 87 17 128/67 100 Oxymask 03/04/24 08:06 36.7 C 66 16 136/77 94 Room Air O2 Flow Rate 03/04/24 13:20 03/04/24 13:10 03/04/24 13:00 03/04/24 12:50 03/04/24 12:40 4 03/04/24 12:31 6 03/04/24 08:06 Transfer of Care Handoff Completed per policy Notes Mental Status: alert / awake / arousable and participated in evaluation Nausea / Vomiting: adequately controlled Pain: adequately controlled Airway Patency, RR, SpO2: stable & adequate BP & HR: stable & adequate Hydration State: stable & adequate Neuraxial Anesthesia: was administered and sensory block is resolving Anesthetic Complications: no major complications apparent and Pt Satisfied with anesthetic care
--- NOTE | 2024-03-04 13:50 | XRay Report ---
XR knee LT 1 or 2V routine HISTORY: 63 years-old Female Surgical Post Op left knee arthroplasty COMPARISON: 08/09/2023 TECHNIQUE: 2 views of the left knee FINDINGS: Total joint arthroplasty with patellar resurfacing, soft tissue swelling with expected deep tissue ai r. No acute fracture, dislocation or unexpected opaque foreign body. IMPRESSION: Satisfactory alignment of the total joint arthroplasty. ACT 112: Negative or not required by law. The above report was generated using voice recognition software. It may contain grammatical, syntax o r spelling errors. Electronically signed by: Luis Alfredo Cain M.D. 03/04/2024 1:48 PM
--- NOTE | 2024-03-04 16:08 | Orthopedic Progress Note ---
Date of Service March 04, 2024 Assessment & Plan (1) Osteoarthritis of left knee: Plan: POD #0 s/p L TKA, doing as well as expected. Resume diet. WBAT with walker. OOB to chair. Continue pain control. Check labs tomorrow. Complete 24 hours antibiotics DVT prophylaxis: TEDs 3 weeks, foot pumps while in hospital, Eliquis 2.5 mg BID for 6 weeks. PT/OT. D/C planning. Dressing to be changed POD 2-3 to Silverlon type dressing. Present on Admission?: Yes Admission and Anticipated Discharge Date Admission Date: March 04, 2024 Subjective Feeling good Physical Exam Physical Exam: LLE: BCR < 2 sec. Sensation to light touch intact distally. Wiggling ankle and toes. Calf soft and non-tender. Dressing is clean, dry, intact. Able to perform straight leg raise & actively bend knee. Results & Data Vital Signs (Past 12 Hours) Vital Signs Temp Pulse Pulse Resp BP BP Pulse Ox 03/04/24 16:03 64 18 139/74 96 03/04/24 15:17 64 16 140/82 96 03/04/24 14:20 63 15 123/78 95 03/04/24 14:05 65 17 118/72 94 03/04/24 14:03 36.7 C 67 18 131/77 96 03/04/24 13:50 72 16 120/75 94 03/04/24 13:35 66 14 119/77 94 03/04/24 13:20 36.4 C L 67 12 118/72 98 03/04/24 13:10 68 13 126/72 97 03/04/24 13:00 67 15 135/75 96 03/04/24 12:50 66 15 122/70 93 03/04/24 12:40 68 14 124/71 100 03/04/24 12:31 36.2 C L 87 17 128/67 100 03/04/24 08:06 36.7 C 66 16 136/77 94 O2 Del Method O2 Flow Rate 03/04/24 16:03 Room Air 03/04/24 15:17 Room Air 03/04/24 14:20 Room Air 03/04/24 14:05 Room Air 03/04/24 14:03 Room Air 03/04/24 13:50 Room Air 03/04/24 13:35 Room Air 03/04/24 13:20 Room Air 03/04/24 13:10 Room Air 03/04/24 13:00 Room Air 03/04/24 12:50 Room Air 03/04/24 12:40 Oxymask 4 03/04/24 12:31 Oxymask 6 03/04/24 08:06 Room Air Diagnostic Findings XR knee LT 1 or 2V routine HISTORY: 63 years-old Female Surgical Post Op left knee arthroplasty COMPARISON: 08/09/2023 TECHNIQUE: 2 views of the left knee FINDINGS: Total joint arthroplasty with patellar resurfacing, soft tissue swelling with expected deep tissue air. No acute fracture, dislocation or unexpected opaque foreign body. IMPRESSION: Satisfactory alignment of the total joint arthroplasty.
[2024-03-04] MEDS: Scopolamine CHECK PATCH PLACEMENT SCH (16:36)
[2024-03-04] MEDS: ASCORBIC ACID 500 MG TAB PO SCH (16:37)
[2024-03-04] MEDS: FERROUS GLUCONATE 324 MG TAB PO SCH (16:37)
[2024-03-04] MEDS: KETOROLAC TROMETHAMINE 15 MG/ML VIAL IV SCH (16:43)
[2024-03-04] MEDS: TAMOXIFEN CITRATE 10 MG TABLET PO SCH (19:35)
[2024-03-04] MEDS: DOCUSATE SODIUM 100 MG CAP PO SCH (22:08)
[2024-03-04] MEDS: SENNA 8.6 MG TAB PO SCH (22:08)
[2024-03-05] MEDS: droNABinol 2.5 MG CAP PO PRN
--- OUTSIDE RECORDS SUMMARY | 2024-03-05 05:28 | External Medical Summary | Continuity of Care Document ---
Author Name Unknown Organization [address] [employer] [place] [id number] Address [address] [place] [phone] Care Team Providers Care University Controller Name Role Phone PierreCasimiro avlia Danielle Primary Care Physician [phone] Encounter [facility] [id number] Date(s): 01/02/24 - 01/02/24 [facility] [address] [facility] [address] [facility] Medicine [address] [place] [id number] Encounter Diagnosis S/P total knee arthroplasty(Discharge Diagnosis) - 01/02/24 Discharge Disposition: Home or Self Care Attending Physician: MD Chanel, Nolan A Allergies, Adverse Reactions, Alerts Substance Criticality Severity Reaction Reaction Severity Status anastrozole felt very poorly on it Active traMADol hives Active Immunizations Given and Recorded Vaccine Date [...] 1Result Comment: Kayden 2Result Comment: [place]jairo Medications aspirin 81 mg oral capsule Start: 12/20/23 1:00:00 PM EDT Start Date: 12/20/23 Status: Ordered Calcium Start: 11/12/23 9:42:00 AM EDT, Calcium, 2,000 = mg, PO, Daily Start Date: 11/12/23 Status: Ordered tamoxifen 20 mg oral tablet Start: 10/17/23 10:19:00 AM EDT, 1 tab, PO, Daily, Disp# 90 tab, Refills: 3, Pharmacy: [facility] Start Date: 10/17/23 Status: Ordered Tylenol Start: 11/30/23 2:47:00 PM EDT Start Date: 11/30/23 Status: Ordered Vitamin B12 Start: 10/11/22 8:52:00 AM EDT, 1,000 mcg =, PO, Daily Start Date: 10/11/22 Status: Ordered Vitamin D3 2000 intl units (50 mcg) oral capsule Start: 07/17/22 12:20:00 PM EDT, 1 cap, PO, Daily, Disp# 100 cap, Refills: 10, other Start Date: 07/17/22 Status: Ordered ZyrTEC 10 mg oral tablet Start: 11/30/23 3:38:00 PM EDT, 1 tab, PO, qhs, Disp# 14 tab, use as needed for hives, PRN: as needed for allergy symptoms, Pharmacy: [facility] Start Date: 11/30/23 Stop Date: 12/14/23 Status: Ordered Mental Status 01/02/24 Barriers to Learning one year None evide nt Mandatory Health Literacy Documentation Yes Health Literacy Communication Barriers N ever Primary Language Danish Problem List Condition Confirmation Course Effective Dates Status Health Status Informant B12 deficiency anemia Confirmed Active DEGENERATION OF INTERVERTEBRAL DISC, SITE UNSPECIFIED Confirmed Active Diverticulosis Confirmed Active S/P total knee arthroplasty Confirmed Active Hyperhomocystinemia 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 Low back pain Confirmed Active Leg pain, bilateral Confirmed Active Pes anserinus bursitis of left knee Confirmed Active Postmenopausal estrogen deficiency Confirmed Active Bilateral primary osteoarthritis of knee Confirmed Active Strain of calf muscle Confirmed Active Tendonitis, tibialis 1 Confirmed Active VITAMIN D DEFICIENCY Confirmed Active 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 Diagnosis Diagnosis Type Effective Dates Health Status Clinical Service Informant S/P total knee arthroplasty Discharge Diagnosis 01/02/24 Procedures Procedure Date Related Diagnosis Body Site Status Total knee replacement 1 11/20/23 Completed DEXA - dual energy X-ray absorptiometry 2 10/19/23 Completed Colonoscopy 3 12/11/22 Completed Esophagogastroduodenoscopy 4, 5 09/13/22 Completed Ultrasound of pelvis and perineum 6 08/11/22 Completed X-ray of left knee 7 07/13/22 Comp leted X-ray of right knee 8 07/13/22 Com pleted Pap smear and HPV cotesting 9 03/23/20 Completed Pulmonary function test 10 10/17/[address] 11 08/23/18 Completed Foot 03/2018 Completed Colonoscopy 12 11/16/17 Completed PAP test date 05/03/17 Completed Left breast 13 04/23/17 Completed Breast lumpectomy 14 04/09/17 Comp leted Pathology report 15 03/07/17 Compl eted Biopsy of breast 16, 17 02/28/17 C ompleted Diagnostic mammogram 02/28/17 Comp leted Mammogram 18, 19, 20 02/19/17 Comp leted MRI 21 10/30/16 Completed Papanicolaou smear 22 04/17/16 Com pleted umbilical hernia repair 10/29/12 C ompleted Colonoscopy normal 09/13/11 Comple jose [place] Teeth extraction 1978 C ompleted 1right 2SPINE: T score = -0.4 WNL HIP: T Score = -0.9 WNL 3- Diverticulosis in the left colon. - The examination was otherwise normal on direct and retroflexion views. - No specimens collected. - Repeat colonoscopy in 5 years for surveillance. 4EGD stomach nl but bx done for gastric mapping. 2nd duod nl bx 5PATHOLOGY: Gastric antrumGreater Curvature: Reactive gastropathy with intestinal metaplasia. Gastric antrumLesser Curvature: Mild reactive gastropathy with focal intestinal metaplasia. Gastric Incisura: Mild reactive gasgtropathy. GastricBody, Lesser Curvature: No significant pathologic changes. Gastric Body, Greater Curvature: No significant pathologic changes. Duodenum: No significant pathologic changes: REPEAT 3 YEARS. 61) Slightly irregular and borderline thickened endometrium measuring up to 7.7 with a few small subendometrial cysts. No definite endometrial masses identified. This endometrial irregularity/thickening is nonspecific but in the abscence of vaginal bleeding could represent long-standing tamoxifen therapy. 2) Normal right ovary. 3) The left ovary obscured by overlying bowel gas. 7Osteopenia and degenerative change as above with no acute bony abnormality identified. Degenerativechange has progressed as compared to 2017. 8Degenerative changes without evidence of acute injury 9WNL 10normal spirometry lung volumes and diffusing capacity of the lung for carbon monoxide. there was slight improvement after inhaled bronchodilator in both fev1 and [id number], possibly indicating some very mild reactive airways disease. clinical correlation is needed 111. No acute intrathoracic abnormality identified , specifically no evidence of pulmonary thromboembolic disease. 2. No adenopathy or focal airspace consolidation typical for pneumonia. 3. No evidence of radiation fibrosis or metastatic disease. 4. Postoperative changes of the left breast and left axilla. 12Diverticulosis in the sigmoid colon No specimens collected 13excision 14left 15Left breast, upper outer wuadrant stereotactic-guided core biopsy. 16Impression: Stereotactic biopsy of indeterminate calcifications in the left upper out quadrant, with clip placement. 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 Size ingreatest dimension on glass slide 7 mm. estrogen receptor-negataive. Progesterone reeptor negative 18No malignancy. One year screening recommended. 19No malignancy. One year screening recommended. 20Grouped calcifications in left superior breast, for which additional evaluation is recommended. 21Impression: Left knee. 1. Medial and leteral meniscal tears as described above 2. Tiny cyst-like structure deep to the intact MCL. This is consistent with a mild MCL bursitis. 3. Mild to moderate tricompartmental osteoarthritis most notable within the medial compartment. 4. Small popliteal cyst. 22Negative for intraepithelial lesion or malignancy. Social History Social History Type Response Smoking Status Never smoked cigaret charlee Sex Female Sex Representation Female (finding) Ortho Outpt Note * MD Chanel, Nolan A: MODIFY MD Chanel, Nolan A: MODIFY, MODIFY, MODIFY Event Display: Ortho Outpt Note Authored Date: [id number] Name:DOMINGA GARCIA Patient Number:[id number] :1960 Date of Service:01/02/2024 CHIEF COMPLAINT: Status post right total knee arthroplasty, DOS: 11/20/23 HPI: [id number] Johana presents today forf/u s/p right TKA, DOS: 11/20/23. She ambulates without crutches. She states that she has began swimming again. Patient continues to go to formal PT, and notes they are working on increasing her range of motion. She regularly massages the area and applies lotion to the area, but notes she has not done any patellar mobility exercises. She drove this past weekend and was on her feet for a while, and said her left leg was very sore after this. Patient would like to attend a wedding at the end of the month, and is wondering if she is safe for air travel. In March, she would liketoundergoa left TKA if possible. She has continued taking Aspirin. Today she rates her pain as a 2/10. PHYSICAL EXAM: Focusing on the patient'srightlower extremity: 2+ DP pulse Sensation to light touch is intact Motor to the gastroc soleus, tibialis anterior, and EHL is 5/5. Able to perform straight leg raise. Incision is well-healed with no signs of infection Range of motion 5-95 Left: Left knee ROM 0 to 125 + Medial joint line > lateral joint line tenderness + Painful crepitation with knee ROM Ligamentous examination exhibits: Stable Jenny 0 mm anterior translation and firm endpoint Posterior drawer stable Varus stress at 0 and 30 stable Valgus stress at 0 and 30 stable RADIOGRAPHY: Bilateral APstanding, Lateral,and Sunriseviews of therMunchkin kneeobtained [facility] by me show cementedTKA components in good position. No evidence of loosening. I reviewed an OA series(Bilateralhipsto ankles,AP standing, 45flexionPA view, sunrise, and lateral) whichshows medial joint space narrowing, [id number]. There is squaring of the tibia, sclerosis, and marginal osteophytes. No acute fracture or dislocation. 7Varus alignment on the right, 5 Varus alignment on the left. Incidental finding of degenerative lower lumbar spine with scoliosis. IMPRESSION: 63 year old woman s/p right TKA, DOS: 11/20/23,much improved. Left knee OA GOAL: Return to regular activities PLAN: After a lengthy discussion with the patient today regarding my above clinical findings, as well as reviewing their imaging with them, their treatment options of conservative management with injections, activity modifications versus surgical intervention with a knee replacement were discussed. We did note concerns regarding her previous reaction to Tramadol during her right TKA. Celebrex did not help alleviate her pain. Due to this, we discussed Iovera injections for her left knee prior to surgery. - The risk and benefits of each were discussed. The risks of surgery included but not limited to: Infection, bleeding, nerve damage, continued pain, failure of hardware, deep vein thrombosis, PE, stroke, ME, and . - They would like to proceed with surgery and informed consent will be signed at future H&P forleft TKA. - Will obtain medical clearance prior to proceeding with surgery. - They will speak with my medical office scheduler and have a history and physical examination performed. - Referral given for Dr. Holman for possibleIovera injections. - Advised to continue formal PT - Begin patellar mobility exercises, and prone hangs, 10-15 minutes 3x/day - She was educated on various exercises to do at home to help increase ROM - Able to stop taking Aspirin, but when air travelling, she was advised to resume Aspirin regimen. - Continue progressing to activities as tolerated. - Cleared to drive, stopping every 1-1.5 hours to move legs. - Reminded of taking anti-biotics prior to any dental work - Follow-up in 6 weeks The patient understood all my instructions and explanations; all their questions were satisfactorily addressed. ATTESTATION: I, Cecilia Denney, scribing forand in the presence of, Nolan Buchanan, on this date,01/02/2024 14:32:00. I, Dr. Buchanan, saw and examined the patient with Cecilia Denney acting as my scribe. I reviewed the note and agree with the documented findings and the plan of care I developed. Electronic Signature on File Electronically Reviewed/Signed by: Cecilia Denney Author Signature Dt/Tm:01/02/2024 02:33 PM Electronically Reviewed/Signed by: Cecilia Denney Cosigner Signature Dt/Tm: 01/02/2024 02:47 PM Electronically Reviewed/Signed by: MD Edgardo Del Rio Signature Dt/Tm: 01/02/2024 05:19 PM [facility] [employer] Supervisor Department of Orthopaedics and Rehabilitation [facility] [address], [place] [address] MR Patient Care team information Care Team Personnel Name: MD Queen Jonathan D Position: Physician - Family Med Member Role: Lifetime Relationship Address: [address] [place] [id number] Name: BERTA Tellez Tara Position: Nurse Pract - Family Med Member Role: Lifetime Relationship Address: [address] [place] [address] [place] Name: MD Gabby, Casimiro Santos Position: Physician - Family Med Member Role: Primary Care Provider Address: [address] [facility] [address] [place] [address] Name: MD Khang, Yvette De La Rosa Position: Physician - Surgery Oncology Member Role: Lifetime Relationship Address: [address] [facility] [address] [facility] [address] [place] [address] [place] Care Team Related Persons Name: LATISHA GARCIA Name: BEAR TATE
--- OUTSIDE RECORDS SUMMARY | 2024-03-05 05:28 | External Medical Summary | Continuity of Care Document ---
Author Name Unknown Organization [facility] Address [address] [place] [address] [place] DANIELSON [phone] Care Team Providers Care Network Mgr Name Role Phone Casimiro Pierre Primary Care Physician [phone] Encounter [facility] [id number] Date(s): 02/18/24 - 02/18/24 [facility] [id number], [place] [address]- [phone] Encounter Diagnosis Macrocytosis without anemia(Discharge Diagnosis) - 02/18/24 Discharge Disposition: Home or Self Care Attending [...] PO, Daily Start Date: 11/12/23 Status: Ordered Eliquis 2.5 mg oral tablet Start: 02/13/24 10:53:00 AM EST, 1 tab, PO, bid, Disp# 84 tab, Pharmacy: [facility] Start Date: 02/13/24 Stop Date: 03/26/24 Status: Ordered MetroCream 0.75% topical cream Start: 02/06/24 1:42:00 PM EST, 1 appl, topical, bid, Disp# 45 g, Refills: 3, TO face once or twice a day, Pharmacy: [facility] Start Date: 02/06/24 Status: Ordered oxyCODONE 5 mg oral tablet Start: 02/13/24 10:53:00 AM EST, 1 tab, PO, q4h, Disp# 18 tab, Refills: 0, Note to Pharmacy: initial therapy, PRN: as needed for pain, Pharmacy: [facility] Start Date: 02/13/24 Status: Ordered tamoxifen 20 mg oral tablet Start: 10/17/23 10:19:00 AM EDT, 1 tab, PO, Daily, Disp# 90 tab, Refills: 3, Pharmacy: [facility] Start Date: 10/17/23 Status: Ordered Vitamin B12 Start: 10/11/22 8:52:00 AM EDT, 1,000 mcg =, PO, Daily Start Date: 10/11/22 Status: Ordered Vitamin D3 2000 intl units (50 mcg) oral capsule Start: 07/17/22 12:20:00 PM EDT, 1 cap, PO, Daily, Disp# 100 cap, Refills: 10, other Start Date: 07/17/22 Status: Ordered Mental Status 02/18/24 Barriers to Learning one year None evide nt Mandatory Health Literacy Documentation Yes Health Literacy Communication Barriers N ever Primary Language Polish Problem List Condition Confirmation Course Effective Dates Status Health Status Informant B12 deficiency anemia Confirmed Active DEGENERATION OF INTERVERTEBRAL DISC, SITE UNSPECIFIED Confirmed Active Diverticulosis Confirmed Active S/P total knee arthroplasty Confirmed Active Hyperhomocystinemia 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 Low back pain Confirmed Active Actinic keratoses Confirmed Active Leg pain, bilateral Confirmed Active Pes anserinus bursitis of left knee Confirmed Active Postmenopausal estrogen deficiency Confirmed Active Bilateral primary osteoarthritis of knee Confirmed Active ROSACEA Confirmed Active Seborrheic keratoses Confirmed Active Strain of calf muscle Confirmed Active Tendonitis, tibialis 1 Confirmed Active VITAMIN D DEFICIENCY Confirmed Active 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 Diagnosis Diagnosis Type Effective Dates Health Status Clinical Service Informant Macrocytosis without anemia Discharge Diagnosis 02/18/24 Non-Specified Procedures Procedure Date Related Diagnosis Body [...] C ompleted Colonoscopy normal 09/13/11 Comple jose [place] Teeth extraction 1978 C ompleted 1right 2SPINE: [...] after inhaled bronchodilator in both fev1 and pdp12-88, possibly indicating some very mild reactive airways [...] cyst. 22Negative for intraepithelial lesion or malignancy. Vital Signs Most recent to oldest [Reference Range]: 1 Temperature [36.5-37.9 DegC] 36.2 DegC *LOW* (02/18/24 8:29 AM) Heart Rate 64 bpm (02/18/24 8:29 AM) Blood Pressure 110/72mmHg (02/18/24 8:29 AM) Cuff Pulse Pressure 38 mmHg (02/18/24 8:29 AM) Social History Social History Type Response Smoking Status Never smoked cigaret charlee Sex Female Sex Representation Female (finding) Patient Care team information Care Team Personnel Name: MD Bret, Danny Lucas Position: Physician - Family Med Member Role: Lifetime Relationship Address: [address] [facility] [address] [place] [address] [place] Name: BERTA Tellez Tara Position: Nurse Pract - Family Med Member Role: Lifetime Relationship Address: [address] [place] [address] [place] Name: MD Gabby, Casimiro Santos Position: Physician - Family Med Member Role: Primary Care Provider Address: [address] [place] [address] [place] Name: MD Khang, Yvette De La Rosa Position: Physician - Surgery Oncology Member Role: Lifetime Relationship Address: [address] [facility] [address] [place] [address] [place] Care Team Related Persons Name: LATISHA GARCIA Name: BEAR TATE
--- OUTSIDE RECORDS SUMMARY | 2024-03-05 05:28 | External Medical Summary | Continuity of Care Document ---
Author Name Unknown Organization [place] [address] Address [address] [place] [id number] Care Team Providers Care Business Administration Program Chair Name Role Phone Casimiro Pierre Primary Care Physician [phone] [id number] Date(s): 01/14/24 - 01/14/24 [facility] [address] [facility] [address] [address] [phone] Encounter Diagnosis Preop examination(Discharge Diagnosis) - 01/14/24 Discharge Disposition: Home or Self Care Attending Physician: MD Pierre Michael P Allergies, Adverse Reactions, Alerts Substance Criticality Severity Reaction Reaction Severity Status anastrozole felt very poorly on it Active traMADol hives Active Assessment and Plan Extracted from: Title:Office Visit Note Author:MD Gabby, Shane Santos Date:01/14/24 1.Preop examination PRE-OPERATIVE EVALUTION Requested by:Dr. Buchanan Planned surgery: [...] laps fast (some limitations due to knee now)- Bleeding tendency:Denies h/o blood clots. Does NOT have Von Willebrands per recent eval with Heme Onc per Dr. Atwood. PRIOR SURERY: Partial mastectomy in APR 2017-- She states she did NOT require any desmopressin or IV VWF. ALso had a Right TKA in OCT and did well. NB: NOT FELT TO HAVE Von Willebrandsafter recent re-eval with Heme Onc [facility] ( Rai ODEN) Substance use:None Prior anesthesia:No history of anesthesia complications with prior surgeries Revised Cardiac Risk Index: Score=0 [0] Higher Risk Surgery (intraperitoneal, intrathoracic, supra-inguinal vascular) [0] Ischemic Heart Disease [0] History of CHF [0] History of cerebrovascular disease [0] Insulin therapy for DM [0] Pre-op Cr >2( cr= 0.77 inAPR 2023) Cr= 0.82 Total Score= 0 Class 1 *The scores are assigned to four risk classes, as follows: RCRI scoreRisk classRisk percentage 0Class I 0.4% 1Class II 0.9% 2 Class III 6.6% 3 6 Class IV 11% NB: Seen recently by Dr. Saul calhonu NOT have Von Willibrands so nocoagualtionissues anticipated. MEDICALLY PTISCLEAREDFORORTHOPEADICSURGERY. Should hold Tamoxifen 2 weeks prior to surgery then restart once cleared from surgery. Summary: Medications: reviewed/changed/refilled _Completed Results:_Reviewed Labs:_NA Follow up visit: Return to clinic: _ Other activities completed this visit: Education provided (discussion, questions, etc) _ Discussed: _ I will email Dr Amrik del toro she is medically cleared for surgery. NB: Pt to contact Dr. Rai Richards she can havelabs ordered 11/12/2023 for 02/17 24 apptdone at [facility]. Coordinate care: Primary care and _ Time spent: Pre-visit planning: _ 9 Nidi-av-ivcy visit: _ 20 Total visit time: _ 29 *does not include time for AWV or [...] acel (Tdap) 12/12/06 R ecorded 1Result Comment: [facility] 2Result Comment: [facility] Medications Calcium Start: 11/12/23 9:42:00 AM EDT, Calcium, 2,000 = mg, PO, Daily Start Date: 11/12/23 Status: Ordered tamoxifen 20 mg oral tablet Start: 10/17/23 10:19:00 AM EDT, 1 tab, PO, Daily, Disp# 90 tab, Refills: 3, Pharmacy: [facility] Start Date: 10/17/23 Status: Ordered Vitamin B12 Start: 10/11/22 8:52:00 AM EDT, 1,000 mcg =, PO, Daily Start Date: 10/11/22 Status: Ordered Vitamin D3 2000 intl units (50 mcg) oral capsule Start: 07/17/22 12:20:00 PM EDT, 1 cap, PO, Daily, Disp# 100 cap, Refills: 10, other Start Date: 07/17/22 Status: Ordered Mental Status 01/14/24 Barriers to Learning one year None evide nt Mandatory Health Literacy Documentation Yes Health Literacy Communication Barriers N ever Primary Language Czech Problem List Condition Confirmation Course Effective Dates [...] Effective Dates Health Status Clinical Service Informant Preop examination Discharge Diagnosis 01/14/24 Non-Specified Procedures Procedure Date Related Diagnosis Body [...] C ompleted Colonoscopy normal 09/13/11 Comple jose [place] Teeth extraction 1978 C ompleted 1right 2SPINE: [...] after inhaled bronchodilator in both fev1 and hqe03-11, possibly indicating some very mild reactive airways [...] Most recent to oldest [Reference Range]: 1 Heart Rate 75 bpm (01/14/24 2:08 PM) Respiratory Rate 16 br/min (01/14/24 2:08 PM) Blood Pressure 116/72mmHg (01/14/24 2:08 PM) Cuff Pulse Pressure 44 mmHg (01/14/24 2:08 PM) Social History Social History Type Response Smoking Status Never smoked cigaret charlee Sex Female Sex Representation Female (finding) FCM Outpt Note * MD Gabby, Casimiro Santos: PERFORM Event Display: FCM Outpt Note Authored Date: [id number] Chief Complaint Follow up- review labs. History of Present Illness Most recent visitwith Dr. Pierre: 11/08/2023 * This patient is followed longitudinally for chronic serious medical problems by Dr. Lashawn Pierre. CC: FU on established problems (status = chronic):S/P DCIS, von Wiilibrands Dis (refuted by Heme Onc)B12 deficiency, VitD defciency, Address new problems (status = acute): Needs Medical clearance for Left TKA in MAR 04, 2024. Right TKA was done in 11/20/2023. Review of Systems Constitutional: No fever, No chills, No fatigue. Respiratory: No shortness of breath, No cough, No wheezing. Cardiovascular: No chest pain, No palpitations. Gastrointestinal: No nausea, No vomiting, No diarrhea, No abdominal pain. Neurologic:No numbness, No tingling, No headache. Physical Exam Vitals & Measurements HR:75(Monitored) RR:16 BP:116/72 SpO2:99% PHQ2 Data(Data Documented on:01/14/2024 14:07) Emotional health assessment NEGATIVE General: Alert and oriented, No acute distress. HEENT: Eyes WNL, Tympanic membranes are clear, No pharyngeal erythema, No sinus tenderness. Neck: Supple, Non-tender, No jugular venous distention, No lymphadenopathy, No thyromegaly. Respiratory: Lungs are clear to auscultation, Respirations are non-labored, Breath sounds are equal. Cardiovascular: Normal rate, Regular rhythm, No murmur, rubs or gallops. Gastrointestinal: Soft, Non-tender, Non-distended, Normal bowel sounds. Neurologic: Alert, Oriented, No focal deficits. Psychiatric: Cooperative, Appropriate mood & affect. Assessment/Plan 1.Preop examination PRE-OPERATIVE EVALUTION Requested by:Dr. Buchanan Planned surgery: [...] laps fast (some limitations due to knee now)- Bleeding tendency:Denies h/o blood clots. Does NOT have Von Willebrands per recent eval with Heme Onc per Dr. Atwood. PRIOR SURERY: Partial mastectomy in APR 2017-- She states she did NOT require any desmopressin orIV VWF. ALso had a Right TKA in OCT and did well. NB: NOT FELT TO HAVE Von Willebrandsafter recent re-eval with Heme Onc C ( Rai ODEN) Substance use:None Prior anesthesia:No history of anesthesia complications with prior surgeries Revised Cardiac Risk Index: Score=0 [0] Higher Risk Surgery (intraperitoneal, intrathoracic, supra-inguinal vascular) [0] Ischemic Heart Disease [0] History of CHF [0] History of cerebrovascular disease [0] Insulin therapy for DM [0] Pre-op Cr >2( cr= 0.77 inAPR 2023) Cr= 0.82 Total Score= 0 Class 1 *The scores are assigned to four risk classes, as follows: RCRI scoreRisk classRisk percentage 0Class I 0.4% 1Class II 0.9% 2 Class III 6.6% 36 Class IV 11% NB: Seen recently by Dr. Saul calhoun NOT have Von Willibrands so nocoagualtionissues anticipated. MEDICALLY PTISCLEAREDFORORTHOPEADICSURGERY. Should hold Tamoxifen 2 weeks prior to surgery then restart once cleared from surgery. Summary: Medications: reviewed/changed/refilled _Completed Results:_Reviewed Labs:_NA Follow up visit: Return to clinic: _ Other activities completed this visit: Education provided (discussion, questions, etc) _ Discussed: _ I will email Dr Amrik del toro she is medically cleared for surgery. NB: Pt to contact Dr. Rai Richards she can havelabs ordered 11/12/2023 for 02/17 24 jimmy at the [facility]. 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, SITE UNSPECIFIED Diverticulosis Hyperhomocystinemia Leg pain, bilateral Low back pain Pes anserinus bursitis of left knee Postmenopausal estrogen deficiency S/P total knee arthroplasty Strain of calf muscle Tendonitis, tibialis VITAMIN [...] ROSACEA Skin lesion SOB (shortness of breath) Sprain of MCL joint of knee Status post radiation therapy Thumb Torn meniscus Traumatic plantar fasciitis Vegetarian Procedure/Surgical History Total knee replacement| Service Date: 4DEXA - dual energy X-ray absorptiometry| Service Date: 4Colonoscopy| Service Date: 12/11/2022Esophagogastroduodenoscopy| Service Date: 09/13/2022Ultrasound of pelvis and perineum| Service Date: 08/11/2022X-ray of right knee|Service Date: 07/13/2022X-ray of left knee| Service Date: 3Pap smear and HPV cotesting| Service Date: 03/23/2020Pulmonary function test| Service Date: 10/17/2018Chest CT| ServiceDate: 08/23/2018Foot| Service Date: 03/2018Colonoscopy| Service Date: 11/16/2017PAP test date| Service Date: 05/03/2017Left breast| Service Date: 04/23/2017Breast lumpectomy| Service Date: 04/09/2017Pathology report| Service Date: 03/07/2017Diagnostic mammogram| Service Date: 02/28/2017Biopsy of breast| Service Date: 02/28/2017Mammogram| Service Date: 02/19/2017MRI| Service Date: 10/30/2016Papanicolaou smear| Service Date: 04/17/2016umbilical hernia repair| Service Date: 10/29/2012Colonoscopy normal| Service Date: 09/13/2011[place] Teeth extraction| Service Date: 1978 Medications cetirizine(ZyrTEC 10 mg oral tablet), 10 mg= 1 tab, PO, qhs, PRN cholecalciferol(Vitamin D3 2000 intl units (50 mcg) oral capsule), 50 mcg= 1 cap, PO, Daily, 10 refills cyanocobalamin(Vitamin B12), 1000 mcg, PO, Daily tamoxifen(tamoxifen 20 mg oral tablet), 20 mg= 1 tab, PO, Daily, 3 refills unknown medication(Calcium), 2000 mg, PO, Daily Allergies anastrozolefelt very poorly on it traMADolhives Social History Smoking Status Never smoked cigarettes Alcohol - No Risk Use:Current Type:Wine Frequency:1-2 times per month Average drinks per episode in last year:1 Employment/School Status:Employed 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[employer] Exercise Times per week:Daily Self assessment:Excellent [...] (COVID-19) mRNA-1273 vaccine 06/02/2020 Recorded Comments : [place] SARS-CoV-2 (COVID-19) mRNA-1273 vaccine 05/05/2020 Recorded Comments : [place] tetanus toxoids-diphtheria, Td (Adult) 02/14/2018 Given influenza virus vaccine, inactivated 02/14/2018 Given tetanus/diphtheria/pertuss, acel (Tdap) 12/12/2006 Recorded tetanus toxoids-diphtheria, Td (Adult) 11/24/1994 Recorded Recommendations Health Maintenance Pending(in the next year) OverDue Adult Influenza Vaccine due09/30/23and every 1year Due Adult COVID-19 Vaccination due01/14/24Unknown Frequency Adult Social Determinants of Health Screening due01/14/24Unknown Frequency Body Mass Index due01/14/24Unknown Frequency Lipid Screening due01/14/24Unknown Frequency Pneumococcal Vaccine Adults and Adolescents with Chronic Illness due01/14/24One-time only Shingles Vaccine due01/14/24One-time only Satisfied(in the past 1 year) Satisfied Adult Influenza Vaccine on03/02/23.Satisfied by RASHEED Gongora Courtney D Breast Cancer Screening on03/01/23.Satisfied by Mouna Garcia Electronic Signature on File Electronically Reviewed/Signed by: Casimiro Pierre MD Author Signature Dt/Tm:01/14/2024 03:17 PM Department of Family Medicine [facility] Patient Care team information Care Team Personnel Name: MD Queen Jonathan D Position: Physician - Family Med Member Role: Lifetime Relationship Address: [address] [place] [address] [place] Name: BERTA Tellez Tara Position: Nurse Pract - Family Med Member Role: Lifetime Relationship Address: [address] [place] [address] [place] Name: MD Pierre Michael P Position: Physician - Family Med Member Role: Primary Care Provider Address: [address] [place] [address] [place] Name: MD Khang, Yvette De La Rosa Position: Physician - Surgery Oncology Member Role: Lifetime Relationship Address: [address] [facility] [address] [place] [address] [place] Care Team Related Persons Name: LATISHA GARCIA Name: BEAR TATE"
--- OUTSIDE RECORDS SUMMARY | 2024-03-05 05:28 | External Medical Summary | Continuity of Care Document ---
Author Name Unknown Organization [address] [place] [id number] Address [address] [place] [phone] Care Team Providers Care Aspnet Developer Name Role Phone PierreCasimiro avila Danielle Primary Care Physician [phone] [id number] Date(s): 02/11/24 - 02/11/24 [facility] [address] [address] [employer] [facility] 112A [facility] Medicine [address] [place] [id number] Encounter Diagnosis Osteoarthritis of left knee(Discharge Diagnosis) - 02/11/24 Discharge Disposition: Home or Self Care Attending Physician: DO Holman Mehwish Allergies, Adverse Reactions, Alerts Substance Criticality Severity Reaction Reaction Severity Status anastrozole felt very poorly on it Active traMADol hives Active Assessment and Plan Extracted from: Title:Office Visit Note Author:DO Holman Me hwish Date:02/11/24 1.Osteoarthritis of left k nee Risks and benefits of the procedure were discussed. Patient would like to proceed with the injection, see procedure note below. After care and discharge instructions provided. Iovera Procedure Note Preprocedure diagnosis: osteoarthritis, left knee pain Postprocedure diagnosis:Same Primary procedure: Therapeutic cryoneurolysis (Iovera)injectionof theleft knee Anesthesia type:Local Physician: Jayde Holman DO, CAQSM Blood loss:<2ml Indication:leftknee pain, arthritis Verbal consent was obtained. Risks and benefits of the procedure were discussed. Specifically discussed that patients treated with the iovera system may experience reaction including, but not limited to, bruising, swelling, inflammation and/or redness, local pain and/or tendernessand altered feeling at the site of treatment. Because all people are different, some patients pain will feel better right away, will for others the pain may only get a little better or not at all. Results may vary and can be affected by several things including the status of her overall health, the nerve anatomy and the cause of the pain. Patient's may need more thanone treatment. Patient denies a history of cryoglobulinemia,paroxysmal cold hemoglobinuria, cold urticariaor Raynaud's disease. There are noopen or infected wounds at or near the treatment sites. As with any medical treatment, patients may have side effects. These can include but are not limited to,damage to the skin from being exposed to cold, darkening or lightening of the skin, and dimples on the skin in the area of being treated. Outside the areas of treatment, muscles may not work or move normally. The patient was identified and site of the procedure was confirm. Patient was placed in the supine position and both target nerve landmark lines were identifiedon the left kneeand drawn out according to Iovera protocol.This includes 2 nervesover the AFCN treatment line- the medial branch of the anterior femoral cutaneous nerve and an intermediate branch of theanteriorfemoral cutaneous nerve. This includes 2 nerves over the ISN treatment line - the superior branch of the infrapatellar branch of saphenous nerve andthe inferiorbranch of the infrapatellarbranch of the saphenous nerve. A timeout was performed.The area was cleansed with an alcohol prep pad. Both target nerve landmark lines were injected with a total of 10 mL of 1% lidocaine without epinephrine for local anesthesia.The left knee was thenprepped with chloraprep. Thereafter under sterile fashion using the iovera handpiece with a smart tip 309, a series of overlapping injections were made alongthe identified nerve branches of the AFCN and the treatment line of ISNemploying a cryoneurolytic injection pulse of -88 Cwith each injection cycle lasting 63 seconds with 23 injection cycles required to cover both target nerve landmarks. Thereafter, sterile dressings were applied to both injection sites. The patient tolerated the procedure well without complication was discharged in stable condition. Post-procedure instructions were provided and reviewed. Immunizations Given and Recorded Vaccine Date Status [...] 1Result Comment: Kayden 2Result Comment: Kayden Medications Calcium Start: 11/12/23 9:42:00 AM EDT, Calcium, 2,000 = mg, PO, Daily Start Date: 11/12/23 Status: Ordered Eliquis 2.5 mg oral tablet Start: 02/13/24 10:53:00 AM EST, 1 tab, PO, bid, Disp# 84 tab, Pharmacy: [facility] Start Date: 02/13/24 Stop Date: 03/26/24 Status: Ordered MetroCream 0.75% topical cream Start: 02/06/24 1:42:00 PM EST, 1 appl, topical, bid, Disp# 45 g, Refills: 3, TO face once or twice a day, Pharmacy: [facility] Start Date: 02/06/24 Status: Ordered oxyCODONE 5 mg oral tablet Start: 02/13/24 10:53:00 AM EST, 1 tab, PO, q4h, Disp# 18 tab, Refills: 0, Note to Pharmacy: initial therapy, PRN: as needed for pain, Pharmacy: [facility] Start Date: 02/13/24 Status: Ordered tamoxifen 20 mg oral tablet Start: 10/17/23 10:19:00 AM EDT, 1 tab, PO, Daily, Disp# 90 tab, Refills: 3, Pharmacy: [facility] Start Date: 10/17/23 Status: Ordered Vitamin B12 Start: 10/11/22 8:52:00 AM EDT, 1,000 mcg =, PO, Daily Start Date: 10/11/22 Status: Ordered Vitamin D3 2000 intl units (50 mcg) oral capsule Start: 07/17/22 12:20:00 PM EDT, 1 cap, PO, Daily, Disp# 100 cap, Refills: 10, other Start Date: 07/17/22 Status: Ordered Mental Status 02/11/24 Barriers to Learning one year None evide nt Mandatory Health Literacy Documentation Yes Health Literacy Communication Barriers N ever Primary Language Greenlandic Problem List Condition Confirmation Course Effective Dates [...] Effective Dates Health Status Clinical Service Informant Osteoarthritis of left knee Discharge Diagnosis 02/11/24 Non-Specified Procedures Procedure Date Related Diagnosis Body [...] C ompleted Colonoscopy normal 09/13/11 Comple jose [place] Teeth extraction 1978 C ompleted 1right 2SPINE: [...] after inhaled bronchodilator in both fev1 and ixn24-23, possibly indicating some very mild reactive airways [...] Representation Female (finding) Ortho Outpt Note * DO Holman Mehwish: PERFORM Event Display: Ortho Outpt Note Authored Date: Chief Complaint Iovera left knee History of Present Illness Dominga is a 63yo female who presents for Iovera procedure of left knee. Physical Exam Left knee: No erythema, ecchymosis or edema. Assessment/Plan 1.Osteoarthritis of left knee Risks and benefits of the procedure were discussed. Patient would like to proceed with the injection, see procedure note below. After care and discharge instructions provided. Iovera Procedure Note Preprocedure diagnosis: osteoarthritis, left knee pain Postprocedure diagnosis:Same Primary procedure: Therapeutic cryoneurolysis (Iovera)injectionof theleft knee Anesthesia type:Local Physician: Jayde Holman DO, CAQSM Blood loss:<2ml Indication:leftknee pain, arthritis Verbal consent was obtained. Risks and benefits of the procedure were discussed. Specifically discussed that patients treated with the iovera system may experience reaction including, but not limited to, bruising, swelling, inflammation and/or redness, local pain and/or tendernessand altered feeling at the site of treatment. Because all people are different, some patients pain will feel better right away, will for others the pain may only get a little better or not at all. Results mayvary and can be affected by several things including the status of her overall health, the nerve anatomy and the cause of the pain. Patient's may need more thanone treatment. Patient denies a hi story of cryoglobulinemia,paroxysmal cold hemoglobinuria, cold urticariaor Raynaud's disease.There are noopen or infected wounds at or near the treatment sites. As with any medical treatment, patients may have side effects. These can include but are not limited to,damage to the skin from being exposed to cold, darkening or lightening of the skin, and dimples on the skin in the areaof being treated. Outside the areas of treatment, muscles may not work or move normally. The patient was identified and site of the procedure was confirm. Patient was placed in the supine position and both target nerve landmark lines were identifiedon the left kneeand drawn out according to Iovera protocol.This includes 2 nervesover the AFCN treatment line- the medial branch of the anterior femoral cutaneous nerve and an intermediate branch of theanteriorfemoral cutaneous nerve. This includes 2 nerves over the ISN treatment line - the superior branch of the infrapatellar branch of saphenous nerve andthe inferiorbranch of the infrapatellarbranch of the saphenous nerve. A timeout was performed.The area was cleansed with an alcohol prep pad. Both target nerve landmark lines were injected with a total of 10 mL of 1% lidocaine without epinephrine for local anesthesia.The left knee was thenprepped with chloraprep. Thereafter under sterile fashion using the iovera handpiece with a smart tip 309, a series of overlapping injections were made alongthe identified nerve branches of the AFCN and the treatment line of ISNemploying a cryoneurolytic injection pulse of -88 Cwith each injection cycle lasting 63 seconds with 23 injection cyclesrequired to cover both target nerve landmarks. Thereafter, sterile dressings were applied to bothinjection sites. The patient tolerated the procedure well without complication was discharged in stable condition. Post-procedure instructions were provided and reviewed. Problem List/Past Medical History Ongoing Actinic keratoses B12 deficiency anemia Bilateral primary osteoarthritis of knee DCIS (ductal carcinoma in situ) DEGENERATION OF INTERVERTEBRAL DISC, SITE UNSPECIFIED Diverticulosis Hyperhomocystinemia Leg pain, bilateral Low back pain Pes anserinus bursitis of left knee Postmenopausal estrogen deficiency ROSACEA S/P total knee arthroplasty Seborrheic keratoses Strain of calf muscle Tendonitis, tibialis VITAMIN [...] Podagra PREMENSTRUAL TENSION SYNDROMES Recurrent cold sores Skin lesion SOB (shortness of breath) Sprain [...] 09/13/2011Wis[place] Teeth extraction| Service Date: 1977 Medications cholecalciferol(Vitamin D3 2000 intl units (50 mcg) oral capsule), 50 mcg= 1 cap, PO, Daily, 10 refills cyanocobalamin(Vitamin B12), 1000 mcg, PO, Daily metroNIDAZOLE topical(MetroCream 0.75% topical cream), 1 appl, topical, bid, 3 refills tamoxifen(tamoxifen 20 mg oral tablet), 20 mg= 1 tab, PO, Daily, 3 refills unknown medication(Calcium), 2000 mg, PO, Daily Allergies anastrozolefelt very poorly on it traMADolhives Social History Smoking Status Never smoked cigarettes Alcohol - No Risk Use:Current Type:Wine Frequency:1-2 times per month Average drinks per episode in last year:1 Employment/School Status:Employed 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[employer] Exercise Times per week:Daily Self assessment:Excellent condition [...] (COVID-19) mRNA-1273 vaccine 06/02/2020 Recorded Comments : Kayden SARS-CoV-2 (COVID-19) mRNA-1273 vaccine 05/05/2020 Recorded Comments : Kayden tetanus toxoids-diphtheria, Td (Adult) 02/14/2018 Given influenza virus vaccine, inactivated 02/14/2018 Given tetanus/diphtheria/pertuss, acel (Tdap) 12/12/2006 Recorded tetanus toxoids-diphtheria, Td (Adult) 11/24/1994 Recorded Recommendations Health Maintenance Pending(in the next year) OverDue Adult Influenza Vaccine due09/30/23and every 1year Due Adult COVID-19 Vaccination due02/11/24Unknown Frequency Adult Social Determinants of Health Screening due02/11/24Unknown Frequency Body Mass Index due02/11/24Unknown Frequency Lipid Screening due02/11/24Unknown Frequency Pneumococcal Vaccine Adults and Adolescents with Chronic Illness due02/11/24One-time only Shingles Vaccine due02/11/24One-time only Satisfied(in the past 1 year) Satisfied Adult Influenza Vaccine on03/02/23.Satisfied by RASHEED Gongora Courtney D Breast Cancer Screening on03/01/23.Satisfied by Mouna Garcia Electronic Signature on File CC: Nolan Buchanan MD [address] [place] [address] Electronically Reviewed/Signed by: Jayde Holman DO Author Signature Dt/Tm:02/11/2024 05:27 PM Division of Sports Medicine MM Patient Care team information Care Team Personnel Name: MD Bret, Danny Lucas Position: Physician - Family Med Member Role: Lifetime Relationship Address: [address] [place] [address] [place] Name: BERTA Tellez Tara Position: Nurse Pract - Family Med Member Role: Lifetime Relationship Address: [address] [place] [address] [place] Name: MD Gabby, Casimiro Santos Position: Physician - Family Med Member Role: Primary Care Provider Address: [address] [place] [address] [place] Name: MD Khang, Yvette De La Rosa Position: Physician - Surgery Oncology Member Role: Lifetime Relationship Address: [facility] [address] [place] [address] [place] Care Team Related Persons Name: LATISHA GARCIA Name: BEAR TATE"
--- OUTSIDE RECORDS SUMMARY | 2024-03-05 05:28 | External Medical Summary | Continuity of Care Document ---
Author Name Unknown Organization [address] [employer] [place] [address] Address [address] [place] [phone] Care Team Providers Care Labor Relations Worker Name Role Phone Casimiro Pierre Primary Care Physician [phone] Encounter [facility] [id number] Date(s): 01/09/24 - 01/09/24 [facility] [address] [employer] [facility] [address] [facility] Sports Medicine [address] [place] [address] Encounter Diagnosis Left knee pain(Discharge Diagnosis) - 01/09/24 Osteoarthritis of left knee(Discharge Diagnosis) - 01/09/24 Discharge Disposition: Home or Self Care Attending Physician: DO Holman Mehwish Referring Physician: PEDRO Butler [place] Allergies, Adverse Reactions, Alerts Substance Criticality Severity [...] Daily, Disp# 90 tab, Refills: 3, Pharmacy: [facility] Start Date: 10/17/23 Status: Ordered Tylenol [...] PRN: as needed for allergy symptoms, Pharmacy: [facility] Start Date: 11/30/23 Stop Date: 12/14/23 Status: Ordered Mental Status 01/09/24 Barriers to Learning one year None evide nt Mandatory Health Literacy Documentation Yes Health Literacy Communication Barriers N ever Primary Language Slovak Problem List Condition Confirmation Course Effective Dates [...] Effective Dates Health Status Clinical Service Informant Left knee pain Discharge Diagnosis 01/09/24 Non-Specified Osteoarthritis of left knee Discharge Diagnosis 01/09/24 Non-Specified Procedures Procedure Date Related Diagnosis Body [...] C ompleted Colonoscopy normal 09/13/11 Comple jose [place] Teeth extraction 1978 C ompleted 1right 2SPINE: [...] after inhaled bronchodilator in both fev1 and mvh58-52, possibly indicating some very mild reactive airways [...] Family Med Member Role: Lifetime Relationship Address: [address] [place] [address] [place] Name: BERTA Tellez Tara Position: Nurse Pract - Family Med Member Role: Lifetime Relationship Address: [address] [place] [address] [place] Name: MD Gabby, Casimiro Santos Position: Physician - Family Med Member Role: Primary Care Provider Address: [address] [place] [address] [place] Name: MD Khang, Yvette De La Rosa Position: Physician - Surgery Oncology Member Role: Lifetime Relationship Address: [facility] [address] [place] [address] [place] Care Team Related Persons Name: LATISHA GARCIA Name: BEAR TATE
--- OUTSIDE RECORDS SUMMARY | 2024-03-05 05:28 | External Medical Summary | Continuity of Care Document ---
Author Name Unknown Organization [facility] [address] [id number] Care Team Providers Care Air Quality Specialist Name Role Phone Pierre Casimiro Danielle Primary Care Physician [phone] Encounter [facility] [id number] Date(s): 02/06/24 - 02/06/24 [facility] [address] [id number] Encounter Diagnosis Rosacea(Discharge Diagnosis) - 02/06/24 Seborrheic keratoses(Discharge Diagnosis) - 02/06/24 Actinic keratoses(Discharge Diagnosis) - 02/06/24 Discharge Disposition: Home or Self Care Attending Physician: MD Cleary Sara B Referring Physician: DO Cameron Gretchen Elizabeth Allergies, Adverse Reactions, Alerts Substance Criticality Severity Reaction Reaction Severity Status anastrozole felt very poorly on it Active traMADol hives Active Assessment and Plan Extracted from: Title:Dermatology Office Visit Note Author:Mahnaz mendoza MD, Sara B Date:02/06/24 1.Rosacea Discussed with patient. We can a try some MetroCream twice a day. Discussed that as something that will help prevent worsening. Risk benefits discussed. Prescription sent. 2.Seborrheic keratoses Chronic, within normal limits 3.Actinic keratoses This is thin and early.We will follow currently. These tend to be very slowly growing in with her knee surgery upcomingI did not want to cause any skin damage that might delay that. 4. History of hives. Shereally feels that was so associated with the tramadol. I asked about other medications around that time and it sounds like a goodculprit. She will avoid this in the future and call with issues. Immunizations Given and Recorded Vaccine Date Status [...] PO, Daily Start Date: 11/12/23 Status: Ordered MetroCream 0.75% topical cream Start: 02/06/24 1:42:00 PM EST, 1 appl, topical, bid, Disp# 45 g, Refills: 3, TO face once or twice a day, Pharmacy: [facility] Start Date: 02/06/24 Status: Ordered tamoxifen 20 mg oral tablet [...] Start Date: 07/17/22 Status: Ordered Mental Status 02/06/24 Barriers to Learning one year None evide nt Mandatory Health Literacy Documentation Yes Communication Barrier Present No Health Literacy Communication Barriers N ever Primary Language Mozambican Problem List Condition Confirmation Course Effective Dates [...] Effective Dates Health Status Clinical Service Informant Seborrheic keratoses Discharge Diagnosis 02/06/24 Rosacea Discharge Diagnosis 02/06/24 Actinic keratoses Discharge Diagnosis 02/06/24 Procedures Procedure Date Related Diagnosis Body Site [...] C ompleted Colonoscopy normal 09/13/11 Comple jose [place] Teeth extraction 1978 C ompleted 1right 2SPINE: [...] after inhaled bronchodilator in both fev1 and eac81-96, possibly indicating some very mild reactive airways [...] charlee Sex Female Sex Representation Female (finding) Dermatology Outpatient Note * MD Evin, Gemma Schafer: PERFORM Event Display: Dermatology Outpt Note Authored Date: [id number] Chief Complaint Patient has concerns about having hives during tramadol use after knee surgery, she has another knee surgery coming up in a couple of weeks. History of Present Illness the patient is a pleasant 63-year-old female referred to the office today by Dr. Patel.Apparently she had an episode of hives after her knee replacement 8 weeks ago that occurred 6 days after leaving the hospital after starting tramadol. She stopped the tramadol and the rash did resolve. She would also like evaluation of some redness on her cheeks a waist up skin check. She hasno history of skin cancer. Past medical history history of breast cancer Allergies meds updated in power chart Physical Exam Gen: Well appearing patient, no acute distress. Alert and oriented x3. Good mood. Waist up skin exam completed per pt request of face, ears, scalp, hair, lips, neck, chest, back, abdomen, upper extremitites bilaterally including hands and fingersless legs from knees to ankles. She has an occasional seborrheic keratosis1 light actinic keratosis above her left brow. Some redness on her cheeks consistent with rosacea Assessment/Plan 1.Rosacea Discussed with patient. We can a try some MetroCream twice a day. Discussed that as somethingthat will help prevent worsening. Risk benefits discussed. Prescription sent. 2.Seborrheic keratoses Chronic, within normal limits 3.Actinic keratoses This is thin and early.We will follow currently. These tend to be very slowly growing in withher knee surgery upcomingI did not want to cause any skin damage that might delay that. 4. History of hives. Shereally feels that was so associated with the tramadol. I asked about other medications around that time and it sounds like a goodculprit. She will avoid this in the future and call with issues. 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[employer] Exercise Times per week:Daily Self assessment:Excellent condition [...] Father, Age: 90 Years, Cause: cerebral hemorhage Electronic Signature on File CC: Percy Patel MD [address] [place] [address] Electronically Reviewed/Signed by: Gemma Cleary MD Author Signature Dt/Tm:02/06/2024 01:47 PM Department of Dermatology [facility] Patient Care team information Care Team Personnel Name: MD Queen Jonathan D Position: Physician - Family Med Member Role: Lifetime Relationship Address: [address] [place] [address] Name: BERTA Tellez Tara Position: Nurse Pract - Family Med Member Role: Lifetime Relationship Address: [address] [place] [address] [place] Name: MD Gabby, Casimiro Santos Position: Physician - Family Med Member Role: Primary Care Provider Address: [address] [facility] [address] [place] [address] [place] Name: MD Khang, Yvette De La Rosa Position: Physician - Surgery Oncology Member Role: Lifetime Relationship Address: [address] [facility] [address] [place] [address] [place] Care Team Related Persons Name: LATISHA GARCIA Name: BEAR TATE"
[2024-03-05] MEDS: MULTIVITAMIN TAB PO SCH (07:09)
[2024-03-05] MEDS: CALCIUM CARBONATE 1250MG TAB PO SCH (07:09)
[2024-03-05] MEDS: CHOLECALCIFEROL 25 MCG (1000 UNITS) TAB PO SCH (07:10)
[2024-03-05] MEDS: VITAMIN B COMPLEX TAB PO SCH (07:10)
[2024-03-05] MEDS: ACETAMINOPHEN 500 MG TAB PO PRN (07:11)
[2024-03-05 07:28] LABS: Hematocrit (blood only) 34.8 % (37.0-47.0); Hemoglobin 11.4 g/dl (12.0-16.0); Mean Corpuscular Hemoglobin 31.4 pg (25.0-34.0); Mean Corpuscular Hgb Conc 32.8 g/dL (32.0-36.0); Mean Corpuscular Volume 95.9 fL (80.0-100.0); Platelet Count 249 K/uL (130-400); RDW Coefficient of Variation 13.3 % (11.5-14.5); RDW Standard Deviation 47.6 fL (36.4-46.3); Red Blood Count 3.63 M/uL (4.20-5.40); White Blood Count 6.52 K/ul (4.8-10.8)
[2024-03-05 07:46] LABS: BUN Creatinine Ratio 17.6 (10-20); Calcium 9.1 mg/dl (8.6-10.3); Creatinine Clr Calc Pharmacy 61.7 ml/min; Potassium 4.6 mmol/L (3.5-5.1)
[2024-03-05] MEDS: dexAMETHasone 4 MG TAB PO SCH (08:13)
[2024-03-05] MEDS: APIXABAN 2.5 MG TAB PO SCH (08:13)
--- NOTE | 2024-03-05 08:15 | Orthopedic Progress Note ---
Date of Service March 05, 2024 Assessment & Plan (1) Osteoarthritis of left knee: Plan: POD #1 s/p L TKA, doing as well as expected. Resume diet. WBAT with walker. OOB to chair. Continue pain control. Complete 24 hours antibiotics DVT prophylaxis: TEDs 3 weeks, foot pumps while in hospital, Eliquis 2.5 mg BID for 6 weeks. PT/OT. D/C planning. Needs Rx for Celebrex & Marinol Dressing to be changed POD 2-3 to Silverlon type dressing. Admission and Anticipated Discharge Date Admission Date: March 04, 2024 Subjective Increased pain compared to yesterday and unable to lift LLE. But, does feel that she is doing better than at this point in comparison to the R TKA. Physical Exam Physical Exam: LLE: BCR < 2 sec. Sensation to light touch intact distally. Wiggling ankle and toes. Calf soft and non-tender. Dressing is clean, dry, intact. Unable to perform straight leg raise. Results & Data Vital Signs (Past 12 Hours) Vital Signs Temp Pulse Resp BP Pulse Ox O2 Del Method 03/05/24 07:03 36.9 C 59 L 16 117/71 98 Room Air 03/05/24 04:00 36.7 C 57 L 16 112/68 97 03/04/24 23:44 36.7 C 58 L 12 106/72 97 Room Air Laboratory Results Laboratory Results WBC 6.52 K/ul (4.8-10.8) 03/05/24 06:55 RBC 3.63 M/uL (4.20-5.40) L 03/05/24 06:55 Hgb 11.4 g/dl (12.0-16.0) L 03/05/24 06:55 Hct 34.8 % (37.0-47.0) L 03/05/24 06:55 MCV 95.9 fL (80.0-100.0) 03/05/24 06:55 MCH 31.4 pg (25.0-34.0) 03/05/24 06:55 MCHC 32.8 g/dL (32.0-36.0) 03/05/24 06:55 RDW Std Deviation 47.6 fL (36.4-46.3) H 03/05/24 06:55 RDW Coeff of Samaria 13.3 % (11.5-14.5) 03/05/24 06:55 Plt Count 249 K/uL (130-400) 03/05/24 06:55 MPV 10.0 fL (9.4-12.4) 03/05/24 06:55 PT 10.8 Seconds (9.0-12.0) 03/04/24 07:51 INR 1.0 (0.9-1.1) 03/04/24 07:51 APTT 28 Seconds (21-31) 03/04/24 07:51 PTT Ratio 1.0 03/04/24 07:51 Sodium 138 mmol/L (136-145) 03/05/24 06:55 Potassium 4.6 mmol/L (3.5-5.1) 03/05/24 06:55 Chloride 103 mmol/L (98-107) 03/05/24 06:55 Carbon Dioxide 30 mmol/L (21-32) 03/05/24 06:55 Anion Gap 5 (3-11) 03/05/24 06:55 BUN 15 mg/dl (6-23) 03/05/24 06:55 Creatinine 0.85 mg/dl (0.6-1.2) 03/05/24 06:55 Est Cr Clr Drug Dosing 61.7 ml/min 03/05/24 06:55 eGFR 77.41 03/05/24 06:55 BUN/Creatinine Ratio 17.6 (10-20) 03/05/24 06:55 Glucose 94 mg/dl (70-99(Fasting)) 03/05/24 06:55 Calcium 9.1 mg/dl (8.6-10.3) 03/05/24 06:55 Blood Type O Positive 03/04/24 07:51 Antibody Screen NEGATIVE 03/04/24 07:51 Impressions Knee X-Ray 03/04/24 12:33 XR knee LT 1 or 2V routine HISTORY: 63 years-old Female Surgical Post Op left knee arthroplasty COMPARISON: 08/09/2023 TECHNIQUE: 2 views of the left knee FINDINGS: Total joint arthroplasty with patellar resurfacing, soft tissue swelling with expected deep tissue air. No acute fracture, dislocation or unexpected opaque foreign body. IMPRESSION: Satisfactory alignment of the total joint arthroplasty. ACT 112: Negative or not required by law. The above report was generated using voice recognition software. It may contain grammatical, syntax or spelling errors. Electronically signed by: Luis Alfredo Cain M.D. 03/04/2024 1:48 PM
[2024-03-05] MEDS: oxyCODONE HCL IR 5 MG TAB (IMMEDIATE RELEASE) PO PRN (10:25)
[2024-03-05] MEDS: CeleBREX 200 MG CAP PO SCH (18:41)
[2024-03-05 19:48] VITALS: TEMP 98.2
--- NOTE | 2024-03-06 06:50 | Orthopedic Progress Note ---
Date of Service March 06, 2024 Assessment & Plan (1) Osteoarthritis of left knee: Plan: POD #2 s/p L TKA, doing as well as expected. Resume diet. WBAT with walker. OOB to chair. Continue pain control. Completed 24 hours antibiotics DVT prophylaxis: TEDs 3 weeks, foot pumps while in hospital, Eliquis 2.5 mg BID for 6 weeks. PT/OT. D/C planning. Needs Rx for Celebrex & Marinol Dressing to be changed POD to Silverlon type dressing later today. Admission and Anticipated Discharge Date Admission Date: March 04, 2024 Subjective Ready to go home. Physical Exam Physical Exam: LLE: BCR < 2 sec. Sensation to light touch intact distally. Wiggling ankle and toes. Calf soft and non-tender. Incision is clean, dry, intact, dressing had min old dried blood. Unable to perform straight leg raise. Results & Data Vital Signs (Past 12 Hours) Vital Signs Temp Pulse Resp BP Pulse Ox O2 Del Method 03/05/24 19:47 36.8 C 63 12 104/62 99 Room Air Laboratory Results 03/05/24 Range/Units 06:55 WBC 6.52 (4.8-10.8) K/ul RBC 3.63 L (4.20-5.40) M/uL Hgb 11.4 L (12.0-16.0) g/dl Hct 34.8 L (37.0-47.0) % MCV 95.9 (80.0-100.0) fL MCH 31.4 (25.0-34.0) pg MCHC 32.8 (32.0-36.0) g/dL RDW Std Deviation 47.6 H (36.4-46.3) fL RDW Coeff of Samaria 13.3 (11.5-14.5) % Plt Count 249 (130-400) K/uL MPV 10.0 (9.4-12.4) fL Sodium 138 (136-145) mmol/L Potassium 4.6 (3.5-5.1) mmol/L Chloride 103 (98-107) mmol/L Carbon Dioxide 30 (21-32) mmol/L Anion Gap 5 (3-11) BUN 15 (6-23) mg/dl Creatinine 0.85 (0.6-1.2) mg/dl Est Cr Clr Drug Dosing 61.7 ml/min eGFR 77.41 BUN/Creatinine Ratio 17.6 (10-20) Glucose 94 (70-99(Fasting)) mg/dl Calcium 9.1 (8.6-10.3) mg/dl
[2024-03-06 07:26] VITALS: BP 101/66; PULSE 79; RESP 18; O2SAT 95
--- NOTE | 2024-03-07 10:09 | Discharge Summary ---
Date of Service March 07, 2024 Admission HPI Per Admitting Provider History of Present Illness Raquel Jose is a 63 year old Female who is here today for preoperative history and physical for the above-noted procedure. She is s/p right TKA, DOS: 11/20/23. She is doing relatively well status post her right TKA. She occasionally still has swelling and pain but overall is ready for her left knee to be done. She did have an iovera treatment on the . She has not noted any pain relief yet. She is hopeful that this will help her with postoperative pain control. She denies any major changes in her medical history. She has been cleared for surgery by her PCP and ui developer with angular js/oncologist. She is aware she needs to hold her tamoxifen 2 weeks prior to her surgery. Admission Exam Per Admitting Provider Physical Exam Vitals & Measurements T: 36.3 C RR: 20 BP: 136/78 SpO2: 99% General: Pt is well nourished, seated on the exam table AA&O, in NAD, calm and cooperative during exam HENT: Nontraumatic, no gross deformity, hearing and vision grossly in-tact, PERRL Heart: +S1, +S2, RRR, no murmurs appreciated Lungs: CTABL, no wheezing appreciated Left knee ROM 0 to 125 + Medial joint line > lateral joint line tenderness + Painful crepitation with knee ROM Ligamentous examination exhibits: Stable Jenny 0 mm anterior translation and firm endpoint Posterior drawer stable Varus stress at 0 and 30 stable Valgus stress at 0 and 30 stable Principal Diagnosis Left knee osteoarthritis Discharge Exam LLE: BCR < 2 sec. Sensation to light touch intact distally. Wiggling ankle and toes. Calf soft and non-tender. Incision is clean, dry, intact, dressing had min old dried blood. Unable to perform straight leg raise. Discharge Data Allergies Allergy/AdvReac Type Severity Reaction Status Date / Time tramadol Allergy Intermediate Hives Verified 03/04/24 08:01 Procedures Performed Operation Date: 03/04/24 09:50 Actual Procedures p Left Total Knee Arthroplasty(Left) - Nolan Buchanan MD Ordered Studies 03/04/24 05:00 US - OR guided needle placemen Routine Hospital Course (1) Osteoarthritis of left knee: Has issue with pain control. Stayed an extra day. Sent home on Marinol and Celebrex. POD #2 s/p L TKA, doing as well as expected. Resume diet. WBAT with walker. OOB to chair. Continue pain control. Completed 24 hours antibiotics DVT prophylaxis: TEDs 3 weeks, foot pumps while in hospital, Eliquis 2.5 mg BID for 6 weeks. PT/OT. D/C planning. Needs Rx for Celebrex & Marinol Dressing to be changed POD to Silverlon type dressing later today. Total Time Total Time Spent Total Time Spent (In Minutes): 20 mins Discharge Plan Discharge Items Patient Disposition: Home - Home Health Services Reason For Visit: Left Knee Osteoarthritis Discharge Diagnosis: s/p left total knee arthroplasty Condition on Discharge: Good Activity: Per Instructions section Lifting: Wait until after follow-up appointment Bathing: Keep incision dry Sexual Activity: Wait until after follow-up appointment Exercise/Sports: Wait until after follow-up appointment Driving/Machine Use: No driving until cleared by Dr. Buchanan Weightbearing: Full weightbearing Non-emergency contact: Surgeon Call non-emergency contact if: you have any medication questions, your pain is not controlled, your temperature is above 101.5, your wound has increased redness, your wound has increased drainage and your wound pain has increased Follow-up/Referrals: Casimiro Pierre [Primary Care Provider] - Gloria Butler PA-C [Physician Hadoop Consultant] - 03/06/24 9:30 am Diet: Regular Addtl Attending Provider Instructions: POST OPERATIVE DISCHARGE INSTRUCTIONS Pain Control Please take the follow medications for pain control, as well as icing and elevating your operative extremity. Pain after surgery is to be expected. We may not be able to take away all of your pain, but the goal is to make your pain manageable - Extra strength Tylenol 1,000mg (2 tabs) every 8 hours - Oxycodone 5-10mg (1-2tabs) every 4-6 hours as needed - Marinol 5mg (1 tab) every 4 hours as needed DVT Prophylaxis With any surgery, you are at increased risk for blood clots. Please take the follow measures to prevent blood clots and read the warning signs to watch for. Please take the follow anticoagulant: Eliquis 2.5 mg twice a day for 6 weeks If you were given KATTY compression stockings, these are to be worn on both legs for 18-20 hours daily for 2 weeks, or for 3 weeks for any lower extremity surgery. Warning signs: Calf pain, lower extremity swelling, numbness/tingling, skin discoloration, increased pain, shortness of breath, chest pain. Please contact our office if you experience any of these symptoms or call 911 if you are having trouble breathing. Ice Ice your operative site at least 5 times a day for 15-30 minutes at a time, for the first three days, then as needed. This will help to reduce swelling and pain. Make sure you have a thin cloth between the ice or cooling unit and your skin to prevent borden bite. This is especially important if you received a nerve block. Diet/Nausea/Vomiting Start by drinking clear liquids and eating crackers. If you can tolerate this, then you may resume your normal diet. If you feel nauseated or vomit, take Zofran/ondansetron (if prescribed). Please call our office if you have intractable nausea or vomiting, or, if after hours, you may go to the Emergency Room for help. Surgical Dressing Please leave on any dressing until you are seen by a PA for your post-operative appointment, unless you are otherwise instructed. If there are any issues with your dressing please give our office a call. Weight bearing, Range of Motion, Activity You will be weight bearing as tolerated on your operative site. you may use crutches or walker to assist in ambulation. Physical therapy You will do your rehab for the first two weeks with home health. Then you will begin outpatient physical therapy. It is very important you follow your rehab protocol and do your exercises as instructed by your provider and physical therapist. Wound care and showering We will inspect your wound at your first post-operative visit. It is normal to see some dried blood on the dressing. Do not remove your dressing, paper strips or sutures yourself unless otherwise instructed. Showering is allowed post op day 3. Do not scrub or remove any dressings, unless you are otherwise instructed. Once your dressing is changed in the office to the water-resistant dressing. You can shower with this on as long as all the edges are in tact. To promote wound healing, we recommend taking a multi-vitamin, or taking 500mg Vitamin C supplement twice a day for two weeks and 325mg Iron supplement twice a day for two weeks. Constipation Constipation is a common side effect of narcotic pain medication, dehydration after surgery and iron supplement (if you were instructed to begin that after surgery). We recommend purchasing an [id number] laxative such as Milk of Magnesia, Colace, Dulcolax, Miralax or Senna from a local pharmacy, and taking it as instructed. Stay hydrated and you may increase your fiber in your diet as well. Call our clinic if any questions. Driving You may not drive while taking narcotic pain medication or while in a cast, splint, sling or brace. Driving will be discussed at your first post op appointment Return to Work Your return to work depends on what surgery was done and what type of work you do. Please bring any paperwork your employer needs completed to your first post-operative visit. Also, bring a description of your job duties, as this helps us to understand what risks you may face at work. Travel Avoid long distance travel (greater than 1 hour) in airplanes and cars for the first 6 weeks after surgery. Follow-up Please attend your post operative appointments as scheduled. At these appointments, we may do dressing change and remove any sutures/lolly/Zip-line 10-14 days after your surgery. If you do not know your post operative appointment dates or times please call the office at [phone] When to call the office It is normal to have swelling and bruising in the limb that was operated on. This will improve with time. It is also normal to have fevers for the first 2 days after surgery. Reasons you should call your doctor include: Uncontrolled pain; Nausea, vomiting, or constipation that does not improve with medication; Fevers over 101.5, chills, sweats; Drainage or bleeding from the wound; Foul odor; Spreading areas of redness; calf pain or swelling, shortness of breath, chest pain; Any other concerns You may call the office at [phone]. If it is a medical emergency please call 101. Pending Studies at Discharge: No Stand-Alone Forms: [facility] Instagram, Smoking Cessation Medications and DC Order Prescriptions: Continued cholecalciferol (vitamin D3) 1 tab PO QAM acetaminophen [Tylenol Extra Strength] 500 mg tablet 1,000 mg PO Q8 PRN (Reason: Pain) tamoxifen 20 mg tablet 20 mg PO HS Hold Instructions: Resume on 11/28/23. calcium 600 mg PO QAM vitamin B complex Tablet 1 tab PO QAM Admission Data Admit Date/Time: 03/04/24 12:33 Attending Provider: Nolan Buchanan Admit Provider: Nolan Buchanan Primary Care Provider: Casimiro Pierre Other Interventions: Discharge Summary Assessment (RN) Last Done: 03/06/24 09:39
== END 2024-03-06 10:33 | disposition home health service (06) ==
LOC: ASU 07:30 → 3E 07:30